=== PATIENT | female | born 1955 | race Caucasian/White ===

== ENCOUNTER → 2024-01-23 13:29 | Outpatient (CLI) | payer MEDICARE, OTHER, SELFPAY ==
--- NOTE | 2024-01-23 13:31 | DI.RAD.S_ITS ---
PROCEDURE: XR ANKLE RT MIN 3V INDICATIONS: Right ankle injury TECHNIQUE: 3 views of the ankle were acquired. COMPARISON: None. FINDINGS: Bones: Distal fibula fracture at the level of the syndesmosis. Minimal step-off. No dislocations. Ankle mortise is normally aligned. No suspicious bony lesions. Soft tissues: No tibiotalar joint effusion. Achilles tendon appears normal. IMPRESSION: Distal fibula fracture at the level of the syndesmosis. Keith Jauregui Dictated by: Tristan Sharma M.D. on 01/23/2024 at 14:26 Approved by: Tristan Sharma M.D. on 01/23/2024 at 14:29
--- NOTE | 2024-01-23 13:31 | DI.RAD.S_ITS ---
PROCEDURE: XR FOOT RT MIN 3V INDICATIONS: Right foot injury TECHNIQUE: 3 views of the foot were acquired. COMPARISON: [facility], CR, XR ANKLE RT MIN 3V, 01/23/2024, 13:32. FINDINGS: Bones: Distal fibula fracture. No dislocations. No suspicious bony lesions. Soft tissues: No tibiotalar joint effusion. Achilles tendon appears normal. IMPRESSION: Distal fibula fracture. Dictated by: Tristan Sharma M.D. on 01/23/2024 at 14:25 Approved by: Tristan Sharma M.D. on 01/23/2024 at 14:26
== END ==
PROVIDERS: PCP Family Medicine; Referring Provider Registered Nurse; Visit Provider Registered Nurse
DX: S82.831A Other fracture of upper and lower end of right fibula, initial encounter for closed fracture (principal); M25.571 Pain in right ankle and joints of right foot
CPT/HCPCS: 73610; 73630

== ENCOUNTER → 2024-02-02 08:20 | Outpatient (CLI) | payer MEDICARE, OTHER, SELFPAY | PROVIDERS: PCP Family Medicine; Referring Provider Internal Medicine Critical Care Medicine; Visit Provider Internal Medicine Critical Care Medicine | DX: R06.02 Shortness of breath (principal) | CPT/HCPCS: 94060; 94726; 94729 ==

== ENCOUNTER → 2024-04-20 12:00 | Outpatient (CLI) | payer MEDICARE, OTHER, SELFPAY ==
--- NOTE | 2024-04-20 12:02 | DI.RAD.S_ITS ---
PROCEDURE: XR FOOT LT MIN 3V INDICATIONS: lump on left foot, Weight baring 3V TECHNIQUE: 3 views of the foot were acquired. COMPARISON: [facility], CR, XR ANKLE 3+ VIEWS RIGHT, 02/27/2024, 11:18. [facility], CR, XR FOOT RT MIN 3V, 01/23/2024, 13:32. FINDINGS: Bones: No acute fractures identified. No dislocations. Screw at the distal fibula. No suspicious bony lesions. Soft tissues: No tibiotalar joint effusion. Achilles tendon appears normal. IMPRESSION: No acute fracture identified. Screw fixation at the distal fibula. Dictated by: Tristan Sharma M.D. on 04/20/2024 at 15:50 Approved by: Tristan Sharma M.D. on 04/20/2024 at 15:52
== END ==
PROVIDERS: PCP Family Medicine; Referring Provider Nurse Practitioner Family; Visit Provider Nurse Practitioner Family
DX: M79.672 Pain in left foot (principal)
CPT/HCPCS: 73630

== ENCOUNTER → 2024-08-31 08:00 | Outpatient (CLI) | payer MEDICARE, OTHER, SELFPAY ==
--- NOTE | 2024-08-31 | DI.MG.S_ITS ---
BILATERAL DIGITAL SCREENING MAMMOGRAM 3D/2D WITH CAD: 08/31/2024 CLINICAL: Routine screening. Family history of breast cancer. Comparison is made to exams dated: 08/12/2022 mammogram, 07/17/2021 mammogram, and 08/22/2023 mammogram - outside facility. The breasts are heterogeneously dense, which may obscure small masses (category c / 51-75% glandular tissue). Current study was also evaluated with a Computer Aided Detection (CAD) system. No significant masses, calcifications, or other findings are seen in either breast. There has been no significant interval change. IMPRESSION: NEGATIVE There is no mammographic evidence of malignancy. A 1 year screening mammogram is recommended. Based on the Tyrer Cuzick model (a risk assessment model) the patient's lifetime risk is 12.0% and her 10 year risk is 6.4%. According to the ACR, ACS, and NCCN guidelines, an annual breast MRI exam along with mammogram is recommended if the patient's lifetime risk is 20% or greater. This exam was interpreted at Station ID: [id number]. NOTE: For mammograms, a report in lay terms will be sent to the patient. Approximately 15% of breast malignancies will not be visualized mammographically. In the management of a palpable breast mass, a negative mammogram must not discourage biopsy of a clinically suspicious lesion. Electronically Signed By: Jackie Portillo M.D., Ph.D. [email or web address]:08/31/2024 23:47:48 letter sent: Normal Exam ACR BI-RADS Category 1: Negative
== END ==
PROVIDERS: PCP Family Medicine; Referring Provider Family Medicine; Visit Provider Family Medicine
DX: Z12.31 Encounter for screening mammogram for malignant neoplasm of breast (principal); Z80.3 Family history of malignant neoplasm of breast; R92.333 Mammographic heterogeneous density, bilateral breasts
CPT/HCPCS: 77063; 77067

== ENCOUNTER → 2024-09-06 08:27 | Outpatient (CLI) | payer MEDICARE, OTHER, SELFPAY | LOC: RESP 08:28 | PROVIDERS: PCP Family Medicine; Referring Provider Internal Medicine Pulmonary Disease; Visit Provider Internal Medicine Pulmonary Disease | DX: R06.02 Shortness of breath (principal); J84.9 Interstitial pulmonary disease, unspecified; R94.2 Abnormal results of pulmonary function studies | CPT/HCPCS: 94060; 94726; 94729 ==

== ENCOUNTER → 2024-11-01 09:41 | Outpatient (CLI) | payer MEDICARE, OTHER, SELFPAY ==
--- NOTE | 2024-11-01 09:48 | DI.RAD.S_ITS ---
PROCEDURE: XR HIP W PEL IF DONE LT 2V INDICATIONS: suspected hip OA, groin and hip pain TECHNIQUE: AP pelvis with lateral view(s) of the left hip(s). COMPARISON: None. FINDINGS: Bones: No fractures or dislocations. Pelvic ring appears intact. No suspicious bony lesions. Soft tissues: The visualized bowel gas pattern is normal. No suspicious soft tissue calcifications. Moderate atheromatous calcification. IMPRESSION: No acute bony abnormality. Dictated by: Srinivasa Chan M.D. on 11/01/2024 at 13:04 Approved by: Srinivasa Chan M.D. on 11/01/2024 at 13:05
== END ==
LOC: RAD 09:44
PROVIDERS: PCP Family Medicine; Referring Provider Family Medicine; Visit Provider Family Medicine
DX: M25.559 Pain in unspecified hip (principal)
CPT/HCPCS: 73502

== ENCOUNTER 2024-11-12 09:59 | Emergency (ER) | payer MEDICARE, OTHER, SELFPAY ==
[2024-11-12] VITALS (8 sets, daily range): BP systolic 135–166; BP diastolic 63–77; PULSE 61–65; RESP 14–18; TEMP 36.8; O2SAT 97–100; BMI 25.2
--- NOTE | 2024-11-12 10:08 | EKG_ITS ---
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
--- NOTE | 2024-11-12 10:09 | DI.RAD.S_ITS ---
PROCEDURE: XR CHEST 1V INDICATIONS: chest pain TECHNIQUE: One view of the chest was acquired. COMPARISON: None. FINDINGS: Surgical changes and devices: Right clavicle fixation. Lungs and pleura: Lungs are clear. No pleural effusions or pneumothorax. Mediastinum: Mediastinal contours appear normal. Heart size is normal. Bones and chest wall: Old right-sided rib fractures. No suspicious bony lesions. Overlying soft tissues appear unremarkable. IMPRESSION: No acute cardiopulmonary abnormality is seen. Dictated by: Shamar Parikh M.D. on 11/12/2024 at 11:02 Approved by: Shamar Parikh M.D. on 11/12/2024 at 11:03
[2024-11-12 10:36] LABS: Add Manual Diff / Slide Review NO; Basophils Absolute Auto 0 /uL (0-100); Basophils Percent Auto 0.9 % (0-2); Eosinophils Absolute Auto 300 /uL (0-450); Eosinophils Percent Auto 6.7 % (2-4); Hematocrit 41.6 % (36-46); Hemoglobin 14.4 g/dL (12.0-16.0); Lymphocytes Absolute Auto 1500 /uL (1100-4500); Lymphocytes Percent Auto 31.9 % (25-40); Mean Corpuscular HGB Conc 34.5 % (30-36); Mean Corpuscular Volume 86.8 fL (80-100); Monocytes Absolute Auto 500 /uL (0-900); Monocytes Percent Auto 9.9 % (3-14); Neutrophils Absolute Auto 2400 /uL (1500-7000); Neutrophils Percent Auto 50.6 % (50-75); Platelet Count 253 X10^3/uL (150-400); Red Blood Cell Count 4.79 X10^6/uL (4.0-5.2); Red Cell Distribution Width 14.2 % (11.6-14.8); White Blood Cell Count 4.6 X10^3/uL (4.5-11.0)
[2024-11-12 10:41] LABS: Prothrombin Time 10.9 SECONDS (9.4-12.5)
[2024-11-12 10:44] LABS: PTT Partial Thromboplastin Tim 31 SECONDS (25.1-36.5)
[2024-11-12 10:45] LABS: Alanine Aminotransferase 28 IU/L (<35); Albumin 4.6 g/dL (3.5-5.0); Albumin Globulin Ratio 1.6 (1.0-2.8); Alkaline Phosphatase 101 U/L (38-126); Aspartate Aminotransferase 34 IU/L (14-36); BUN Creatinine Ratio 19.2 (6-22); Bilirubin Total 0.4 mg/dL (0.2-1.3); Blood Urea Nitrogen 19 mg/dL (7-17); Calcium 9.2 mg/dL (8.4-10.2); Carbon Dioxide 31 mmol/L (22-32); Chloride 103 mmol/L (98-107); Creatine Kinase 71 U/L (30-135); Estimated Glomerular Filt Rate > 60 mL/min (>60); Globulin 2.8 g/dL (1.7-4.1); Glucose 82 mg/dL (80-110); HEMOLYSIS < 15 (0-50); Lipase 114 U/L (23-300); Magnesium 1.9 mg/dL (1.6-2.3); Potassium 4.4 mmol/L (3.4-5.1); Sodium 138 mmol/L (137-145); Total Protein 7.4 g/dL (6.3-8.2)
[2024-11-12 10:57] LABS: NT-proBNP (BNP-Adult 18+) < 20 pg/mL (<125); Troponin I < 0.012 ng/mL (0.01-0.034)
[2024-11-12] MEDS: ASPIRIN 81 MG CHEW TAB 243 MG PO (11:04)
--- NOTE | 2024-11-12 12:12 | ED.CHESTPAIN ---
HPI - Chest Pain General Chief Complaint: Chest Pain Stated Complaint: chest pain Time Seen by Provider: 11/12/24 11:57 Source: patient Mode of arrival: Ambulatory Limitations: no limitations History of Present Illness HPI narrative: Patient is a 69-year-old female history of sarcoid she has no known coronary artery disease but does have known calcifications in her coronaries hyperlipidemia on a statin presents today with chest pain. She reports that up about an hour and half after eating she was sitting at her computer when she felt some pain in the center of her chest. It is nonradiating lasted for about 45 minutes and has slowly gone away. She denies any sort of shortness of breath. She is extremely active exercises and rides her bike. She has not noticed any decrease in activity she denies any sort of shortness of breath no lower extremity swelling no abdominal pain nausea or vomiting no other symptoms. Related Data Home Medications Medication Instructions Recorded Confirmed amlodipine 5 mg tablet 5 mg PO DAILY 01/23/24 11/01/24 losartan 50 mg tablet 50 mg PO DAILY 01/23/24 11/01/24 omeprazole 20 mg capsule,delayed 20 mg PO DAILY 01/23/24 11/01/24 release omega 3-gfg-ooe-fish oil 1,000 mg 2 cap PO DAILY 01/30/24 11/01/24 (120 mg-180 mg) capsule (Fish Oil) difluprednate 0.05 % eye drops drp EYE-BOTH 04/20/24 11/01/24 estradiol 10 mcg vaginal tablet 10 mcg vaginal 2XW 04/20/24 11/01/24 hydroxyzine HCl 25 mg tablet 25 mg PO BID 04/20/24 11/01/24 venlafaxine 37.5 mg tablet 37.5 mg PO DAILY 11/01/24 11/01/24 Previous Rx's Medication Instructions Recorded methotrexate sodium 10 mg tablet 10 mg PO QWEEK #12 tabs 09/19/24 cyclobenzaprine 5 mg tablet 5 mg PO 3XD PRN for muscle spasm 11/12/24 #30 tabs Allergies Allergy/AdvReac Type Severity Reaction Status Date / Time levofloxacin [From Levaquin] Allergy Severe swelling Verified 11/01/24 09:05 Penicillins Allergy Severe swelling Verified 11/01/24 09:05 Sulfa (Sulfonamide Allergy Intermediate swelling Verified 11/01/24 09:05 Antibiotics) of feet Patient History Medical History Hip pain Sleep apnea (~2009) Depression Anxiety Fractures (~2010) Chronic back pain (~2022) Dry eyes Tinnitus Recurrent sinusitis Glaucoma (~2019) Cataracts, bilateral History of urinary incontinence (~2021) GERD (gastroesophageal reflux disease) Colon polyps Retinal defect with detachment (~2019) Osteopenia Coronary artery calcification Hyperlipidemia Sarcoidosis (~2022) Closed fibular fracture Shoulder pain, right Surgical History Anesthesia History of eyelid surgery History of rhinoplasty History of ankle surgery History of surgery on wrist History of thumb surgery History of shoulder surgery History of sinus surgery History of appendectomy History of tonsillectomy Family History Father Congestive heart failure Mother Hypertension Hyperlipidemia Mental health problem Stroke Grandmother Breast cancer Social History Smoking Status: Never smoker Smoking Status: Never smoker Alcohol type: wine Exam Initial Vital Signs Initial Vital Signs: Vital Signs Temperature 98.3 F 11/12/24 10:15 Pulse Rate 65 11/12/24 10:15 Respiratory Rate 16 11/12/24 10:15 Blood Pressure 166/77 H 11/12/24 10:15 Pulse Oximetry 98 11/12/24 10:15 Oxygen Delivery Method Room Air 11/12/24 10:15 GENERAL: Alert pleasant well-appearing 69-year-old female and in no acute distress. HEENT: Head atraumatic,EOMI, pupils reactive, face symmetric, moist mucous membranes CARDIOVASCULAR: Regular rate and rhythm without murmurs, rubs or gallops. RESPIRATORY: Breath sounds equal bilaterally, no wheezes rales or rhonchi. ABDOMEN: Soft, nontender. Normoactive bowel sounds all 4 quadrants. No guarding or rebound. EXTREMITIES: Normal range of motion, no clubbing or edema. Neurovascularly intact NEUROLOGICAL: Alert and oriented x4.Normal gait and speech. Cranial nerves II through XII grossly intact. SKIN: Warm, dry, no laceration, no petechiae, no rashes or lesions. Scores HEART Score Heart Score history: Slightly Suspicious Heart Score EKG: Normal Heart Score Age: > or = 65 years old Heart Score risk factors: 1-2 risk factors Heart Score troponin: < or = to normal limit Heart Score Total: 3 Course Orders Ordered: ED Orders 11/12/24 10:09 XR chest 1V Stat EKG-12 Lead Stat 11/12/24 10:22 Complete Blood Count AUTO DIFF Stat Comprehensive Metabolic Panel Stat Lipase Stat Magnesium Stat NT-proBNP (BNP-Adult 18+) Stat PTT Partial Thromboplastin Terrance Stat Prothrombin Time INR Stat Troponin & CK Cardiac Panel Stat 11/12/24 12:28 Trop I [Troponin I] Stat 11/12/24 12:29 EKG-12 Lead Stat Discontinued Medications Aspirin (Aspirin Ec 325 Mg Tablet) 243 mg PO NOW ONE Stop: 11/12/24 10:56 Last Admin: 11/12/24 11:34 Dose: Not Given Documented By: KOBI Aspirin (Aspirin 81 Mg Chew Tab) 243 mg PO NOW ONE Stop: 11/12/24 11:03 Last Admin: 11/12/24 11:04 Dose: 243 mg Documented By: AFSHAN Vital Signs Vital signs: Vital Signs - 8 hr 11/12/24 10:15 11/12/24 10:36 11/12/24 10:37 Temperature 98.3 F Pulse Rate 65 63 Respiratory Rate 16 Blood Pressure 166/77 H 159/72 H Pulse Oximetry 98 97 Oxygen Delivery Method Room Air 11/12/24 10:37 11/12/24 11:00 11/12/24 11:00 Temperature Pulse Rate 61 63 Respiratory Rate 15 15 Blood Pressure 143/68 H Pulse Oximetry 98 97 Oxygen Delivery Method Room Air 11/12/24 11:30 11/12/24 11:30 11/12/24 12:00 Temperature Pulse Rate 64 Respiratory Rate 14 Blood Pressure 135/63 142/68 H Pulse Oximetry 98 Oxygen Delivery Method Room Air 11/12/24 12:00 11/12/24 12:30 11/12/24 12:30 Temperature Pulse Rate 63 62 Respiratory Rate 17 18 Blood Pressure 145/67 H Pulse Oximetry 100 98 Oxygen Delivery Method Room Air 11/12/24 13:00 11/12/24 13:00 Temperature Pulse Rate 63 Respiratory Rate 17 Blood Pressure 141/70 H Pulse Oximetry 98 Oxygen Delivery Method MDM - Chest Pain Lab Data 11/12/24 10:22 11/12/24 10:22 Labs: Lab Results 11/12/24 11/12/24 Range/Units 10:22 12:28 WBC 4.6 (4.5-11.0) X10^3/uL RBC 4.79 (4.0-5.2) X10^6/uL Hgb 14.4 (12.0-16.0) g/dL Hct 41.6 (36-46) % MCV 86.8 (80-100) fL MCH 30.0 (26-34) PG MCHC 34.5 (30-36) % RDW 14.2 (11.6-14.8) % Plt Count 253 (150-400) X10^3/uL Neut % (Auto) 50.6 (50-75) % Lymph % (Auto) 31.9 (25-40) % [place] % (Auto) 9.9 (3-14) % Eos % (Auto) 6.7 H (2-4) % Baso % (Auto) 0.9 (0-2) % Neut # (Auto) 2400 (8071-6593) /uL Lymph # (Auto) 1500 (4753-7661) /uL [place] # (Auto) 500 (0-900) /uL Eos # (Auto) 300 (0-450) /uL Baso # (Auto) 0 (0-100) /uL PT 10.9 (9.4-12.5) SECONDS INR 1.0 (0.9-1.3) APTT 31 (25.1-36.5) SECONDS Sodium 138 (137-145) mmol/L Potassium 4.4 (3.4-5.1) mmol/L Chloride 103 (98-107) mmol/L Carbon Dioxide 31 (22-32) mmol/L BUN 19 H (7-17) mg/dL Creatinine 0.99 (0.52-1.04) mg/dL Estimated GFR > 60 (>60) mL/min BUN/Creatinine Ratio 19.2 (6-22) Glucose 82 (80-110) mg/dL Calcium 9.2 (8.4-10.2) mg/dL Magnesium 1.9 (1.6-2.3) mg/dL Total Bilirubin 0.4 (0.2-1.3) mg/dL AST 34 (14-36) IU/L ALT 28 (<35) IU/L Alkaline Phosphatase 101 (38-126) U/L Total Creatine Kinase 71 (30-135) U/L Troponin I < 0.012 < 0.012 (0.01-0.034) ng/mL NT-Pro-B Natriuret Pep < 20 (<125) pg/mL Total Protein 7.4 (6.3-8.2) g/dL Albumin 4.6 (3.5-5.0) g/dL Globulin 2.8 (1.7-4.1) g/dL Albumin/Globulin Ratio 1.6 (1.0-2.8) Lipase 114 (23-300) U/L Imaging Data Chest x-ray: Radiologist's Impression: PROCEDURE: XR CHEST 1V INDICATIONS: chest pain TECHNIQUE: One view of the chest was acquired. COMPARISON: None. FINDINGS: Surgical changes and devices: Right clavicle fixation. Lungs and pleura: Lungs are clear. No pleural effusions or pneumothorax. Mediastinum: Mediastinal contours appear normal. Heart size is normal. Bones and chest wall: Old right-sided rib fractures. No suspicious bony lesions. Overlying soft tissues appear unremarkable. IMPRESSION: No acute cardiopulmonary abnormality is seen. Dictated by: Shamar Parikh M.D. on 11/12/2024 at 11:02 ECG Data Prior ECG tracings: available for review Interpretation: Normal sinus rhythm rate 64 HI interval 138 QRS 84 QTC 441 Repeat EKGs shows sinus rhythm without ischemia in no changes MDM Narrative Medical decision making narrative: MDM CC: Chest pain Complicating co-morbidities: Sarcoidosis Medical records reviewed: Previous PCP visit having SI pain Differential considered: Acute coronary syndrome, pneumonia GERD pneumothorax NSTEMI STEMI Exam documented above, pertinent findings include: Alert well-appearing 61-year-old female pain not reproducible Lab Test results independently reviewed as above. Pertinent findings: Troponin negative times 2 CBC within normal limits CMP within normal limits Independently reviewed EKG as above Sinus rhythm no ischemia no changes Imaging studies independently reviewed: No acute cardiopulmonary process Consultations: None Treatments: None Re-evaluations: Patient remains chest pain free Discussion: Patient is 61-year-old female presents today with chest pain. Lasted for about 45 minutes. She was very active female it does not stop her she has no significant shortness of breath with exertion. This started at rest but self resolves. She has not noticed any ongoing shortness of breath with exertion. Long discussion with her she likely needs outpatient testing strongly encouraged her to see her primary care and return to the ED if symptoms worsen. She understands that not full evaluation was done. Has a low heart score. She has good follow-up with primary Discharge Plan Departure Patient Disposition: Home Clinical Impression: Atypical chest pain Instructions: DI for Atypical Chest Pain Activity Restrictions/Additional Instructions: *You have been diagnosed with atypical chest pain *What to do: At this time I do recommend he follow up with your primary care provider you may need further testing such as a cardiac stress test and/or echocardiogram *Continue to take medications as directed *Follow up with your primary care provider in 2-3 days or call [phone] *Return to ER if you should have increasing chest pain shortness of breath or any new, worsening or concerning symptoms Prescriptions: No Action omega 5-qwd-ynp-fish oil [Fish Oil] 1,000 mg (120 mg-180 mg) capsule 2 cap PO DAILY omeprazole 20 mg capsule,delayed release(DR/EC) 20 mg PO DAILY amlodipine 5 mg tablet 5 mg PO DAILY losartan 50 mg tablet 50 mg PO DAILY estradiol 10 mcg tablet 10 mcg vaginal 2XW difluprednate 0.05 % drops EYE-BOTH hydroxyzine HCl 25 mg tablet 25 mg PO BID venlafaxine 37.5 mg tablet 37.5 mg PO DAILY methotrexate sodium 10 mg tablet 10 mg PO QWEEK Qty: 12 0RF cyclobenzaprine 5 mg tablet 5 mg PO 3XD PRN (Reason: for muscle spasm) Qty: 30 0RF Referrals: Susana Camacho MD [Primary Care Provider] - Stand Alone Forms: Patient Portal/API/Survey
--- NOTE | 2024-11-12 12:36 | EKG_ITS ---
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
[2024-11-12 13:03] LABS: Troponin I < 0.012 ng/mL (0.01-0.034)
== END 2024-11-12 13:20 | disposition home or self-care (01) ==
PROVIDERS: Emergency Provider Emergency Medicine; PCP Family Medicine
DX: R07.89 Other chest pain (principal); D86.9 Sarcoidosis, unspecified; E78.5 Hyperlipidemia, unspecified
CPT/HCPCS: 36415; 71045; 80053; 82550; 83690; 83735; 83880; 84484; 85025; 85610; 85730; 93005; 99284

== ENCOUNTER → 2024-12-27 08:50 | Outpatient (CLI) | payer MEDICARE, OTHER, SELFPAY ==
--- NOTE | 2024-12-27 08:51 | DI.RAD.S_ITS ---
PROCEDURE: XR CHEST 2V INDICATIONS: cough x1 month TECHNIQUE: 2 views of the chest were acquired. COMPARISON: [facility], CR, XR CHEST 1V, 11/12/2024, 10:08. FINDINGS: Surgical changes and devices: Hardware noted status post reduction of right clavicle fracture. Lungs and pleura: Lungs are clear. No pleural effusions or pneumothorax. Mediastinum: Mediastinal contours are normal. Heart size is normal. Bones and chest wall: No suspicious bony abnormalities. Soft tissues appear unremarkable. IMPRESSION: No evidence of acute cardiopulmonary process. Dictated by: Jas Torres M.D. on 12/27/2024 at 15:02 Approved by: Jas Torres M.D. on 12/27/2024 at 15:03
== END ==
PROVIDERS: PCP Family Medicine; Referring Provider Family Medicine; Visit Provider Family Medicine
DX: R05.9 Cough, unspecified (principal)
CPT/HCPCS: 71046

== ENCOUNTER → 2025-01-24 14:43 | Outpatient (CLI) | payer MEDICARE, OTHER, SELFPAY ==
--- NOTE | 2025-01-24 14:45 | DI.RAD.S_ITS ---
PROCEDURE: XR LUMBAR SPINE MIN 4V INDICATIONS: BACK PAIN TECHNIQUE: 5 views of the lumbar spine were acquired, including bilateral oblique views. COMPARISON: None. FINDINGS: Bones: 5 nonrib-bearing vertebrae are present. Convex right scoliosis, centered at L3. No vertebral body compression fractures. No suspicious bony lesions. Moderate to severe disc height loss at all levels. Facet arthrosis of L3 through S1. Soft tissues: Overlying bowel gas pattern is normal. No suspicious soft tissue calcifications. Oblique images: No pars defects. IMPRESSION: Moderate to severe, multilevel degenerative disc disease and lower lumbar facet arthrosis. Dictated by: Callum Peña M.D. on 01/24/2025 at 15:34 Approved by: Callum Peña M.D. on 01/24/2025 at 15:37
== END ==
PROVIDERS: PCP Family Medicine; Referring Provider Physical Medicine & Rehabilitation; Visit Provider Physical Medicine & Rehabilitation
DX: M54.9 Dorsalgia, unspecified (principal); G89.29 Other chronic pain; M51.369 Other intervertebral disc degeneration, lumbar region without mention of lumbar back pain or lower extremity pain; M47.816 Spondylosis without myelopathy or radiculopathy, lumbar region
CPT/HCPCS: 72110

== ENCOUNTER → 2025-01-29 07:12 | Outpatient (CLI) | payer MEDICARE, OTHER, SELFPAY ==
--- NOTE | 2025-01-29 07:13 | DI.MRI.S_ITS ---
PROCEDURE: MR LUMBAR SPINE WO CON INDICATIONS: Left Lumbar Radiculopathy TECHNIQUE: Noncontrast sagittal T1 spin echo and T2 fast echo, sagittal STIR, and T2 fast spin echo through the lumbar spine. In cases with scoliosis, additional coronal T2 fast spin echo may be performed. COMPARISON: [facility], CR, XR LUMBAR SPINE MIN 4V, 01/24/2025, 14:48. FINDINGS: Image quality: Excellent. Alignment and Curvature: Moderate dextro curvature centered at L3. Bone Marrow: Marrow is of normal overall signal. No acute vertebral body compression fractures. Spinal Cord: Conus medullaris terminates at the L1 level. Visualized cord demonstrates normal signal and size. Paraspinous Soft Tissues: No paravertebral masses. T12-L1: Normal appearance. L1-L2: Normal appearance. L2-L3: Moderate to severe canal stenosis, underestimated by choice of axial scan plane. This is secondary to a moderate broad-based posterior disc protrusion, facet and ligament hypertrophy, and epidural lipomatosis. This is well appreciated on sagittal T1 image 9 of series 4, T2 sagittal image 9 of series 2, and is also seen on T2 axial image 13 of series 6. Moderate left foraminal narrowing with mild flattening deformity on the exiting left L2 nerve root. L3-L4: Mild disc height loss. Disc bulge. Facet hypertrophy. No significant canal stenosis. Moderate to severe left foraminal narrowing with mild left foraminal L3 nerve root impingement. L4-L5: Disc bulge. Facet and ligament hypertrophy. No significant canal stenosis. Mild right foraminal stenosis. L5-S1: Disc bulge with very small focal left paracentral disc protrusion which abuts the left S1 nerve root in the left lateral recess. Reference axial T2 image 27 of series 6. IMPRESSION: 1. There is underlying moderate dextrocurvature centered at L3, as well as multilevel lower lumbar facet arthropathy. Additionally, epidural lipomatosis contributes to canal stenosis at L2-L3. 2. Canal stenosis is moderate to severe at L2-L3. 3. Multilevel foraminal narrowing as described above, including moderate to severe left foraminal narrowing at L3-L4. 4. A small focal left paracentral disc protrusion abuts the left S1 nerve root in the left lateral recess at L5-S1. Dictated by: Nick Jimenez M.D. on 01/29/2025 at 14:35 Approved by: Nick Jimenez M.D. on 01/29/2025 at 14:43
== END ==
PROVIDERS: PCP Family Medicine; Referring Provider Physical Medicine & Rehabilitation; Visit Provider Physical Medicine & Rehabilitation
DX: M54.16 Radiculopathy, lumbar region (principal); M48.061 Spinal stenosis, lumbar region without neurogenic claudication; M43.8X6 Other specified deforming dorsopathies, lumbar region; M47.816 Spondylosis without myelopathy or radiculopathy, lumbar region; E88.2 Lipomatosis, not elsewhere classified; M51.27 Other intervertebral disc displacement, lumbosacral region
CPT/HCPCS: 72148

== ENCOUNTER → 2025-01-29 16:21 | Outpatient (CLI) | payer MEDICARE, OTHER, SELFPAY | PROVIDERS: PCP Family Medicine; Referring Provider Internal Medicine Critical Care Medicine; Visit Provider Internal Medicine Critical Care Medicine | DX: R06.09 Other forms of dyspnea (principal); M54.16 Radiculopathy, lumbar region; M48.061 Spinal stenosis, lumbar region without neurogenic claudication; E88.2 Lipomatosis, not elsewhere classified; M51.27 Other intervertebral disc displacement, lumbosacral region; M43.8X6 Other specified deforming dorsopathies, lumbar region; R94.2 Abnormal results of pulmonary function studies | CPT/HCPCS: 72148; 94060; 94726; 94729 ==

== ENCOUNTER 2025-02-19 13:00 | Outpatient (CLI) | payer MEDICARE, OTHER, SELFPAY ==
[2025-02-19] VITALS (10 sets, daily range): BP systolic 142–159; BP diastolic 67–77; PULSE 58–62; RESP 14–105; TEMP 36.3; O2SAT 96–100
[2025-02-19] MEDS: MIDAZOLAM 2 MG/2 ML VIAL IV (14:12)
[2025-02-19] MEDS: iopamidoL 15 ML VIAL 3 ML INJ (14:16)
[2025-02-19] MEDS: BUPIVACAINE 0.25% (PF) VIAL 2 ML INJ (14:16)
[2025-02-19] MEDS: DEXAMETHASONE 10 MG/ML VIAL 20 MG INJ (14:16)
[2025-02-19] MEDS: BETAMETHASONE 30 MG/5 ML MDV 12 MG INJ (14:16)
[2025-02-19] MEDS: BETAMETHASONE 30 MG/5 ML MDV 6 MG INJ (14:17)
--- NOTE | 2025-02-19 14:37 | P.PCN_ITS ---
Date/Time/Diagnoses Date of procedure: 02/19/25 Time of procedure: 14:38 Pre-procedure diagnosis: 1. FORAMINAL STENOSIS WITH LE SYMPTOMS Post-procedure diagnosis: same Procedure Notes Procedure: 1. FLUOROSCOPICALLY GUIDED CONTRAST CONTROLLED TRANSFORAMINAL EPIDURAL STEROID INJECTION - LEFT L2/3 TFESI Indications: [facility] is referred by Dr. Camacho for treatment of Foraminal Stenosis with left LE Symptoms Physician: Andrey Beebe Total Fluoroscopy time (seconds): 21 Total sedation minutes: 22 Complications: none Procedure in detail & Post-procedure care: FINDINGS Foraminal Nerve Root Compression secondary to disc disease and facet hypertrophy DESCRIPTION OF PROCEDURE Following review of allergy and review of potential side effects and complications, including, but not necessarily limited to, infection, allergic reaction, local tissue breakdown, stroke, temporary or permanent nerve injury, paralysis, and possible , the patient indicated that the patient understood and agreed to proceed. An informed consent document was signed by the patient, witnessed by a nurse, and placed in the patient's chart. Additionally, other treatment options including medications, modalities, and physical therapy were reviewed with the patient. After review of previous anaesthesic history and IV conscious sedation the patient was deemed safe to proceed with today?s procedure with IV conscious sedation as ASA class II designation. Safety time-out was performed to confirm patient ID, procedure to be performed and site of procedure. IV sedation was accomplished with a combination of 2mg of Versed was administered by the RN after DO order, titrated to patient comfort during the course of the procedure while the patient remained responsive to all verbal commands In the prone position following sterile prep and drape of the lumbar region, the left L2/3 posterior neuroforamen was identified fluoroscopically. The skin was anesthetized via a 25-gauge 1.5-inch needle with 1% lidocaine solution. At this point, a 25-gauge 3.5-inch spinal needle was atraumatically introduced and advanced under fluoroscopic guidance through the posterior left L2/3 neuroforamen to approximately the anterior aspect of the canal. Depth was confirmed on lateral view. Following negative aspiration, injection of approximately 1.5 cc of Isovue 200 under live fluoroscopy in the AP view confirmed excellent flow along the nerve root, into the epidural space without vascular or intrathecal uptake observed Radiological data, including multiple fluoroscopic views of the lumbosacral sp ine, reveal a spinal needle at the left L2/3 posterior neuroforamen. Subsequent views show flow of contrast material flowing superiorly and inferiorly along the nerve root confirming epidural flow. Subsequently, a test dose of 1.5cc of 1% lidocaine solution was administered and patient was observed for two minutes for signs or symptoms of complications, including abdominal pain, shortness of breath, bilateral upper or lower extremity weakness, nausea and vomiting, prior to steroid injection. At this point, a total of 3cc or 10mg of dexamethasone and 12mg betamethasone was injected without incident. The patient tolerated the procedure well without signs or symptoms of complications prior to transfer to the recovery area continued monitoring without incident. The patient was then transferred to the recovery area where they were observed for an appropriate time after the injection. The patient reported a VAS score of 8 prior to the procedure and a post-procedure VAS of 1. POST OP INSTRUCTIONS The patient was provided a Pain Log to continue to record their response to the target-specific procedure prior to follow-up visit with their referring phys ician. Additionally, specific post-injection care instructions and a contact number to our office were provided if concerns arise regarding possible complications associated with the procedure are suspected.
--- NOTE | 2025-02-19 14:39 | P.PCN_ITS ---
Date/Time/Diagnoses Date of procedure: 02/19/25 Time of procedure: 14:40 Pre-procedure diagnosis: 1. FORAMINAL STENOSIS WITH LE SYMPTOMS Post-procedure diagnosis: same Procedure Notes Procedure: 1. FLUOROSCOPICALLY GUIDED CONTRAST CONTROLLED TRANSFORAMINAL EPIDURAL STEROID INJECTION - Left L5/S1 Indications: [facility] is referred by Dr. Camacho for treatment of Foraminal Stenosis with Left LE Symptoms Physician: Andrey Beebe Total Fluoroscopy time (seconds): 21 Total sedation minutes: 22 Complications: none Procedure in detail & Post-procedure care: FINDINGS Foraminal Nerve Root Compression secondary to disc disease and facet hypertrophy DESCRIPTION OF PROCEDURE Following review of allergy and review of potential side effects and complications, including, but not necessarily limited to, infection, allergic reaction, local tissue breakdown, stroke, temporary or permanent nerve injury, paralysis, and possible , the patient indicated that the patient understood and agreed to proceed. An informed consent document was signed by the patient, witnessed by a nurse, and placed in the patient's chart. Additionally, other treatment options including medications, modalities, and physical therapy were reviewed with the patient. After review of previous anaesthesic history and IV conscious sedation the patient was deemed safe to proceed with today?s procedure with IV conscious sedation as ASA class II designation. Safety time-out was performed to confirm patient ID, procedure to be performed and site of procedure. IV sedation was accomplished with a combination of 2mg of Versed was administered by the RN after DO order, titrated to patient comfort during the course of the procedure while the patient remained responsive to all verbal commands In the prone position following sterile prep and drape of the lumbar region, the Left L5/S1 posterior neuroforamen was identified fluoroscopically. The skin was anesthetized via a 25-gauge 1.5-inch needle with 1% lidocaine solution. At this point, a 25-gauge 3.5-inch spinal needle was atraumatically introduced and advanced under fluoroscopic guidance through the posterior Left L5/S1 neuroforamen to approximately the anterior aspect of the canal. Depth was confirmed on lateral view. Following negative aspiration, injection of approximately 1.5 cc of Isovue 200 under live fluoroscopy in the AP view confirmed excellent flow along the nerve root, into the epidural space without vascular or intrathecal uptake observed Radiological data, including multiple fluoroscopic views of the lumbosacral sp ine, reveal a spinal needle at the Left L5/S1 posterior neuroforamen. Subsequent views show flow of contrast material flowing superiorly and inferiorly along the nerve root confirming epidural flow. Subsequently, a test dose of 1.5 cc of 1% lidocaine solution was administered and patient was observed for two minutes for signs or symptoms of complications, including abdominal pain, shortness of breath, bilateral upper or lower extremity weakness, nausea and vomiting, prior to steroid injection. At this point, a total of 2cc or 10mg of dexamethasone and 6mg of betamethasone was injected without incident. The procedure tolerated the procedure well without signs or symptoms of complications prior to transfer to the recovery area continued monitoring without incident. The patient was then transferred to the recovery area where they were observed for an appropriate time after the injection. The patient reported a VAS score of 8 prior to the procedure and a post-procedure VAS of 1. POST OP INSTRUCTIONS The patient was provided a Pain Log to continue to record their response to the target-specific procedure prior to follow-up visit with their referring physician. Additionally, specific post-injection care instructions and a contact number to our office were provided if concerns arise regarding possible complications associated with the procedure are suspected.
== END 2025-02-19 14:50 | disposition home or self-care (01) ==
PROVIDERS: PCP Family Medicine; Referring Provider Physical Medicine & Rehabilitation; Visit Provider Physical Medicine & Rehabilitation
DX: M48.061 Spinal stenosis, lumbar region without neurogenic claudication (principal); M48.07 Spinal stenosis, lumbosacral region; M51.16 Intervertebral disc disorders with radiculopathy, lumbar region; M51.17 Intervertebral disc disorders with radiculopathy, lumbosacral region; M47.26 Other spondylosis with radiculopathy, lumbar region; M47.27 Other spondylosis with radiculopathy, lumbosacral region
CPT/HCPCS: 64483; 64484; 99152; J0702; J1100; J2250; J3490

== ENCOUNTER → 2025-04-06 13:45 | Outpatient (CLI) | payer MEDICARE, OTHER, SELFPAY ==
--- NOTE | 2025-04-06 13:48 | DI.CT.S_ITS ---
PROCEDURE: CT SINUS SCREEN WO CON INDICATIONS: facial pain TECHNIQUE: Noncontrast 3.0 mm axial images acquired from the frontal sinuses to the mid-sella, with coronal and sagittal reformats. For radiation dose reduction, the following was used: automated exposure control, adjustment of mA and/or kV according to patient size. COMPARISON: None. FINDINGS: Image quality: Diagnostic Maxillary Sinuses: Postsurgical changes, with no bony remodeling identified or significant opacification Ethmoid Air Cells: Postsurgical changes with no significant fluid or mucosal thickening Sphenoid Sinuses: No significant opacification Frontal Sinuses: Well aerated, no fluid level Ostiomeatal Complexes: Postsurgical changes. Overall patent. Miscellaneous: Postsurgical changes of the middle turbinates The mastoids are clear. The middle ears appear clear. Age-indeterminate deformity of the nasal bone. Mild rightward bony nasal septum deviation. Lens replacements. Partially visualized facial soft tissue structures are unremarkable. Partially visualized upper cervical degenerative changes. IMPRESSION: Postsurgical changes. No acute sinus disease identified. 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 Mild rightward bony nasal septum deviation Dictated by: Francis Del Real M.D. on 04/06/2025 at 19:45 Approved by: Francis Del Real M.D. on 04/06/2025 at 19:47
== END ==
PROVIDERS: PCP Family Medicine; Referring Provider Otolaryngology; Visit Provider Otolaryngology
DX: R51.9 Headache, unspecified (principal); J34.89 Other specified disorders of nose and nasal sinuses; J32.4 Chronic pansinusitis; J34.2 Deviated nasal septum; Z98.890 Other specified postprocedural states; M95.0 Acquired deformity of nose
CPT/HCPCS: 70486

== ENCOUNTER → 2025-05-07 16:04 | Outpatient (CLI) | payer MEDICARE, OTHER, SELFPAY ==
[2025-05-07 16:53] LABS: Influenza A - CEPHEID Flu A NEGATIVE (NEGATIVE); Influenza B - CEPHEID Flu B NEGATIVE (NEGATIVE); Respiratory Syncytial Virus Negative (Negative)
[2025-05-07 17:37] LABS: COVID-19 CEPHEID 4-PLEX PCR Negative (Negative)
== END ==
PROVIDERS: PCP Family Medicine; Visit Provider Nurse Practitioner Family
DX: R50.9 Fever, unspecified (principal)
CPT/HCPCS: 0241U

== ENCOUNTER 2025-05-07 16:13 | Emergency (ER) | payer MEDICARE, OTHER, SELFPAY ==
[2025-05-07] VITALS (12 sets, daily range): BP systolic 93–112; BP diastolic 53–59; PULSE 55–69; RESP 15–18; TEMP 36.8–38; O2SAT 92–97; BMI 25.7
--- NOTE | 2025-05-07 17:36 | ED.URI ---
HPI - URI/Sore Throat <Da De Leon PA-C - Last Filed: 05/07/25 19:12> General Chief Complaint: Upper Respiratory Symptoms Stated Complaint: Fever, Shakiness Time Seen by Provider: 05/07/25 16:52 Source: patient Mode of arrival: Wheelchair History of Present Illness HPI Narrative: 69-year-old female presents to the ED with a fever, shakes, nausea, diarrhea for the last few days. Patient was seen earlier today in the walk-in clinic and sent to the ED for further evaluation with concerns for dehydration. In the ED, patient describes that she got shaky once last night but that has subsided since then. Patient endorses fever, shakes, nausea, anorexia, diarrhea/loose stools. No vomiting, rhinorrhea, cough, sore throat, abdominal pain, dysuria, lightheadedness, dizziness, syncope. Related Data Home Medications ?Medication ?Instructions ?Recorded ?Confirmed amlodipine 5 mg tablet 5 mg PO DAILY 01/23/24 03/06/25 losartan 50 mg tablet 50 mg PO DAILY 01/23/24 03/06/25 omeprazole 20 mg capsule,delayed 20 mg PO DAILY 01/23/24 03/06/25 release omega 5-xqx-lzk-fish oil 1,000 mg 2 cap PO DAILY 01/30/24 03/06/25 (120 mg-180 mg) capsule (Fish Oil) difluprednate 0.05 % eye drops drp EYE-BOTH 04/20/24 03/06/25 estradiol 10 mcg vaginal tablet 10 mcg vaginal 2XW 04/20/24 03/06/25 hydroxyzine HCl 25 mg tablet 25 mg PO BID 04/20/24 03/06/25 atorvastatin 10 mg tablet 10 mg PO DAILY 01/24/25 03/06/25 icosapent ethyl 0.5 gram capsule 1 g PO BID 02/06/25 03/06/25 Previous Rx's ?Medication ?Instructions ?Recorded gabapentin 300 mg capsule 300 mg PO TID #90 caps 01/28/25 methotrexate sodium 2.5 mg tablet 10 mg (4 x 2.5 mg) PO QWEEK #84 02/07/25 tabs doxycycline hyclate 100 mg capsule 100 mg PO BID 1 week #14 caps 05/08/25 Allergies Allergy/AdvReac Type Severity Reaction Status Date / Time levofloxacin (From Levaquin) Allergy Severe swelling Verified 05/08/25 12:06 Penicillins Allergy Severe swelling Verified 05/08/25 12:06 Sulfa (Sulfonamide Allergy Intermediate swelling Verified 05/08/25 12:06 Antibiotics) of feet Review of Systems <Da De Leon PA-C - Last Filed: 05/07/25 19:12> Constitutional Constitutional: Reports anorexia, Reports chills, Denies fatigue, Reports fever(s), Denies frequent falls, Denies lethargy and Denies weakness Eyes Eyes: Denies change in vision, Denies eye discharge, Denies irritation and Denies loss of vision ENT Ears, Nose, Mouth, and Throat: Denies change in voice, Denies dizziness, Denies neck pain, Denies sore throat and Denies throat swelling Cardiovascular Cardiovascular: Denies chest pain, Denies irregular heart rhythm, Denies lightheadedness, Denies palpitations, Denies dyspnea, Denies dyspnea on exertion and Denies orthopnea Respiratory Respiratory: Denies cough, Denies dyspnea, Denies dyspnea on exertion and Denies wheezing Gastrointestinal Gastrointestinal: Denies abdominal pain, Denies change in bowel habits, Reports diarrhea, Reports nausea and Denies vomiting Genitourinary Genitourinary: Denies dysuria Musculoskeletal Musculoskeletal: Denies neck pain and Denies numbness Integumentary/Breasts Skin/Breast: Denies pruritus, Denies erythema, Denies rash and Denies wounds Neurologic Neurologic: Denies behavioral changes, Denies confusion, Denies dizziness, Denies frequent falls, Denies loss of vision, Denies numbness and Denies weakness Psychiatric Psychiatric: Denies anxiety, Denies behavioral changes, Denies confusion, Denies depression, Denies homicidal ideation and Denies suicidal ideation Endocrine Endocrine: Denies fatigue, Denies flushing and Denies palpitations Hematologic/Lymphatic Hematologic/Lymphatic: Denies easy bruising Allergic/Immunologic Allergic/Immunologic: Denies urticaria, Denies throat swelling and Denies wheezing Patient History <Da De Leon PA-C - Last Filed: 05/07/25 19:12> Medical History Lumbar radiculopathy Hip pain Sleep apnea (~2009) Depression Anxiety Fractures (~2010) Chronic back pain (~2022) Dry eyes Tinnitus Recurrent sinusitis Glaucoma (~2019) Cataracts, bilateral History of urinary incontinence (~2021) GERD (gastroesophageal reflux disease) Colon polyps Retinal defect with detachment (~2019) Osteopenia Coronary artery calcification Hyperlipidemia Sarcoidosis (~2022) Closed fibular fracture Shoulder pain, right Surgical History Anesthesia History of eyelid surgery History of rhinoplasty History of ankle surgery History of surgery on wrist History of thumb surgery History of shoulder surgery History of sinus surgery History of appendectomy History of tonsillectomy Family History Father Congestive heart failure Mother Hypertension Hyperlipidemia Mental health problem Stroke Grandmother Breast cancer Social History Smoking Status: Unknown if ever smoked Smoking Status: Never smoker Alcohol type: wine Exam <Da De Leon PA-C - Last Filed: 05/07/25 19:12> Narrative Exam Narrative: Const General:?cooperative, healthy appearing and comfortable [facility] Head:?normal to inspection Ears:?hearing grossly normal bilaterally Nose:?external nose normal Face and sinus:?normal facial exam and sinuses nontender Mouth:?oral mucosae normal Throat:?posterior oropharynx normal Eyes General:?appearance normal, both eyes and all related structures Neck Neck:?normal visual inspection and no lymphadenopathy noted Resp Effort & Inspection:?normal respiratory effort Auscultation:?clear to auscultation bilaterally Cardio Rate:?regular rate Rhythm:?regular rhythm Neuro General:?patient alert, patient awake and patient oriented x3 Initial Vital Signs Initial Vital Signs: Vital Signs Temperature 100.4 F H 05/07/25 16:17 Pulse Rate 69 05/07/25 16:17 Respiratory Rate 18 05/07/25 16:17 Blood Pressure 104/56 L 05/07/25 16:17 Pulse Oximetry 97 05/07/25 16:17 Oxygen Delivery Method Room Air 05/07/25 16:17 <Breezy Hodges MD - Last Filed: 05/08/25 06:25> Initial Vital Signs Initial Vital Signs: Vital Signs Temperature 100.4 F H 05/07/25 16:17 Pulse Rate 69 05/07/25 16:17 Respiratory Rate 18 05/07/25 16:17 Blood Pressure 104/56 L 05/07/25 16:17 Pulse Oximetry 97 05/07/25 16:17 Oxygen Delivery Method Room Air 05/07/25 16:17 <Melonie Canales MD - Last Filed: 05/09/25 07:45> Initial Vital Signs Initial Vital Signs: Vital Signs Temperature 100.4 F H 05/07/25 16:17 Pulse Rate 69 05/07/25 16:17 Respiratory Rate 18 05/07/25 16:17 Blood Pressure 104/56 L 05/07/25 16:17 Pulse Oximetry 97 05/07/25 16:17 Oxygen Delivery Method Room Air 05/07/25 16:17 Course <Da De Leon PA-C - Last Filed: 05/07/25 19:12> Orders Ordered: Discontinued Medications Sodium Chloride (Normal Saline 0.9%) 1,000 mls @ 1,000 mls/hr IV BOLUS ONE Stop: 05/07/25 20:01 Last Infusion: 05/07/25 21:08 Dose: Infused Documented By: Admin: 05/07/25 19:22 Dose: 1,000 mls/hr Documented By: RICARDOG Vital Signs Vital signs: Vital Signs - 8 hr 05/07/25 22:30 05/07/25 22:30 05/07/25 23:00 Pulse Rate 55 L Blood Pressure 112/56 L 95/54 L Pulse Oximetry 95 05/07/25 23:00 05/07/25 23:50 05/07/25 23:50 Pulse Rate 57 L 61 Blood Pressure 106/57 L Pulse Oximetry 97 97 05/08/25 00:00 05/08/25 00:00 Pulse Rate 62 Blood Pressure 123/58 L Pulse Oximetry 99 <Breezy Hodges MD - Last Filed: 05/08/25 06:25> Orders Ordered: Discontinued Medications Sodium Chloride (Normal Saline 0.9%) 1,000 mls @ 1,000 mls/hr IV BOLUS ONE Stop: 05/07/25 20:01 Last Infusion: 05/07/25 21:08 Dose: Infused Documented By: Admin: 05/07/25 19:22 Dose: 1,000 mls/hr Documented By: HNG Vital Signs Vital signs: Vital Signs - 8 hr 05/07/25 22:30 05/07/25 22:30 05/07/25 23:00 Pulse Rate 55 L Blood Pressure 112/56 L 95/54 L Pulse Oximetry 95 05/07/25 23:00 05/07/25 23:50 05/07/25 23:50 Pulse Rate 57 L 61 Blood Pressure 106/57 L Pulse Oximetry 97 97 05/08/25 00:00 05/08/25 00:00 Pulse Rate 62 Blood Pressure 123/58 L Pulse Oximetry 99 <Melonie Canales MD - Last Filed: 05/09/25 07:45> Orders Ordered: Discontinued Medications Sodium Chloride (Normal Saline 0.9%) 1,000 mls @ 1,000 mls/hr IV BOLUS ONE Stop: 05/07/25 20:01 Last Infusion: 05/07/25 21:08 Dose: Infused Documented By: Admin: 05/07/25 19:22 Dose: 1,000 mls/hr Documented By: HNG Vital Signs Vital signs: Vital Signs - 8 hr 05/07/25 22:30 05/07/25 22:30 05/07/25 23:00 Pulse Rate 55 L Blood Pressure 112/56 L 95/54 L Pulse Oximetry 95 05/07/25 23:00 05/07/25 23:50 05/07/25 23:50 Pulse Rate 57 L 61 Blood Pressure 106/57 L Pulse Oximetry 97 97 05/08/25 00:00 05/08/25 00:00 Pulse Rate 62 Blood Pressure 123/58 L Pulse Oximetry 99 MDM - URI/Sore Throat <Da De Leon PA-C - Last Filed: 05/07/25 19:12> Lab Data 05/07/25 19:40 05/07/25 19:40 Labs: Lab Results 05/07/25 Range/Units 19:40 WBC 13.8 H (4.5-11.0) X10^3/uL RBC 4.38 (4.0-5.2) X10^6/uL Hgb 13.3 (12.0-16.0) g/dL Hct 37.9 (36-46) % MCV 86.6 (80-100) fL MCH 30.3 (26-34) PG MCHC 35.0 (30-36) % RDW 14.8 (11.6-14.8) % Plt Count 189 (150-400) X10^3/uL Neut % (Auto) 88.1 H (50-75) % Lymph % (Auto) 7.7 L (25-40) % Nolan % (Auto) 3.8 (3-14) % Eos % (Auto) 0.1 L (2-4) % Baso % (Auto) 0.3 (0-2) % Neut # (Auto) 52430 H (8732-3803) /uL Lymph # (Auto) 1100 (9110-0245) /uL Nolan # (Auto) 500 (0-900) /uL Eos # (Auto) 0 (0-450) /uL Baso # (Auto) 0 (0-100) /uL Sodium 124 L (137-145) mmol/L Potassium 3.8 (3.4-5.1) mmol/L Chloride 94 L (98-107) mmol/L Carbon Dioxide 21 L (22-32) mmol/L BUN 17 (7-17) mg/dL Creatinine 1.07 H (0.52-1.04) mg/dL Estimated GFR 57 L (>60) mL/min BUN/Creatinine Ratio 15.9 (6-22) Glucose 116 H (70-99) mg/dL Lactate 0.8 (0.7-2.1) mmol/L Calcium 8.8 (8.4-10.2) mg/dL Total Bilirubin 0.9 (0.2-1.3) mg/dL AST 43 H (14-36) IU/L ALT 33 (<35) IU/L Alkaline Phosphatase 73 (38-126) U/L Total Protein 6.9 (6.3-8.2) g/dL Albumin 4.3 (3.5-5.0) g/dL Globulin 2.6 (1.7-4.1) g/dL Albumin/Globulin Ratio 1.7 (1.0-2.8) Urine Dip Bedside Urine Glucose Negative Bedside Urine Bilirubin - Negative Bedside Urine Ketone - Negative Urine Specific [place] 1.010 Bedside Urine Occult Blood - Negative Bedside Urine pH 6.5 Bedside Urine Protein - Negative Bedside Urine Urobilinogen - Negative Bedside Urine Nitrite - Negative Bedside Urine Leukocytes - Negative Esterase MDM Narrative Medical decision making narrative: 69-year-old female presents to the ED with a fever, shakes, nausea, diarrhea for the last few days. Concern for URI versus UTI versus dehydration versus other. Will obtain UA, respiratory panel. Respiratory panel is negative for COVID 19, influenza, RSV. Patient unable to produce a urine sample despite 3 bottles of water. Patient's blood pressure has trended down to 96/53 compared to an arrival blood pressure of 104/56. Will likely need IV fluids. Patient is signed out to Dr. Breezy Hodges at this time. Medical records reviewed: Yes 05/07/25, 1900, [place]. Sign-out from RASHAD De Leon. 69-year-old female with low-grade fever 100.4, presented to the walk-in clinic, in fast track emergency department for evaluation, initial systolic blood pressure 104, had nausea without vomiting, loose stools, COVID/flu swab negative, no urinalysis provided, no stool specimen evaluated. Was to be discharge per patient request but found to have blood pressure 90s, no tachycardia. Seems amenable to further evaluation. Cath urine if needed to obtain specimen. IV fluid bolus ordered. Assumed care. <Breezy Hodges MD - Last Filed: 05/08/25 06:25> Lab Data Attestation: I reviewed the patient's lab results. Lab results narrative: White blood cell count 04846, hemoglobin 13.3, platelets adequate. Glucose 116. Renal function normal. Sodium 124 low. Potassium 3.8 normal. Serum CO2 21 mildly decreased. AST slight elevation, other liver functions unremarkable. Lactate 0.8 normal. Urine dip negative. Labs: Lab Results 05/07/25 Range/Units 19:40 WBC 13.8 H (4.5-11.0) X10^3/uL RBC 4.38 (4.0-5.2) X10^6/uL Hgb 13.3 (12.0-16.0) g/dL Hct 37.9 (36-46) % MCV 86.6 (80-100) fL MCH 30.3 (26-34) PG MCHC 35.0 (30-36) % RDW 14.8 (11.6-14.8) % Plt Count 189 (150-400) X10^3/uL Neut % (Auto) 88.1 H (50-75) % Lymph % (Auto) 7.7 L (25-40) % Nolan % (Auto) 3.8 (3-14) % Eos % (Auto) 0.1 L (2-4) % Baso % (Auto) 0.3 (0-2) % Neut # (Auto) 50188 H (3771-7646) /uL Lymph # (Auto) 1100 (0298-8443) /uL Nolan # (Auto) 500 (0-900) /uL Eos # (Auto) 0 (0-450) /uL Baso # (Auto) 0 (0-100) /uL Sodium 124 L (137-145) mmol/L Potassium 3.8 (3.4-5.1) mmol/L Chloride 94 L (98-107) mmol/L Carbon Dioxide 21 L (22-32) mmol/L BUN 17 (7-17) mg/dL Creatinine 1.07 H (0.52-1.04) mg/dL Estimated GFR 57 L (>60) mL/min BUN/Creatinine Ratio 15.9 (6-22) Glucose 116 H (70-99) mg/dL Lactate 0.8 (0.7-2.1) mmol/L Calcium 8.8 (8.4-10.2) mg/dL Total Bilirubin 0.9 (0.2-1.3) mg/dL AST 43 H (14-36) IU/L ALT 33 (<35) IU/L Alkaline Phosphatase 73 (38-126) U/L Total Protein 6.9 (6.3-8.2) g/dL Albumin 4.3 (3.5-5.0) g/dL Globulin 2.6 (1.7-4.1) g/dL Albumin/Globulin Ratio 1.7 (1.0-2.8) Urine Dip Bedside Urine Glucose Negative Bedside Urine Bilirubin - Negative Bedside Urine Ketone - Negative Urine Specific [place] 1.010 Bedside Urine Occult Blood - Negative Bedside Urine pH 6.5 Bedside Urine Protein - Negative Bedside Urine Urobilinogen - Negative Bedside Urine Nitrite - Negative Bedside Urine Leukocytes - Negative Esterase Imaging Data Chest x-ray: Radiologist's Impression: Close Chest X-Ray (Signed) Iqra Hoyt - 05/07/[address] [address] XRay Report Signed Patient: Liberty Cardona MR#: [id number] : 1955 Acct:[id number] Age/Sex: 69 / F Date of Service: 05/07/25 Loc: ED Accession Number: [id number] Procedure: XR chest 2V Ordering Provider: Breezy Hodges MD PROCEDURE: XR CHEST 2V INDICATIONS: cough, low BP TECHNIQUE: 2 views of the chest were acquired. COMPARISON: [facility], CR, XR CHEST 2V, 12/27/2024, 8:57. FINDINGS: Surgical changes and devices: Right clavicular ORIF. Lungs and pleura: Lungs are clear. No pleural effusions or pneumothorax. Mediastinum: Mediastinal contours are normal. Heart size is normal. Bones and chest wall: No suspicious bony abnormalities. Soft tissues appear unremarkable. Old rib fractures. IMPRESSION: No acute pulmonary process. Dictated by: Iqra Hoyt M.D. on 05/07/2025 at 20:49 Approved by: Iqra Hoyt M.D. on 05/07/2025 at 20:49 MDM Narrative Medical decision making narrative: 69-year-old female presents to the ED with a fever, shakes, nausea, diarrhea for the last few days. Concern for URI versus UTI versus dehydration versus other. Will obtain UA, respiratory panel. Respiratory panel is negative for COVID 19, influenza, RSV. Patient unable to produce a urine sample despite 3 bottles of water. Patient's blood pressure has trended down to 96/53 compared to an arrival blood pressure of 104/56. Will likely need IV fluids. Patient is signed out to Dr. Breezy Hodges at this time. Medical records reviewed: Yes 05/07/25, 1900, [place]. Sign-out from RASHAD De Leon. 69-year-old female with low-grade fever 100.4, presented to the walk-in clinic, in fast track emergency department for evaluation, initial systolic blood pressure 104, had nausea without vomiting, loose stools, COVID/flu swab negative, no urinalysis provided, no stool specimen evaluated. Was to be discharge per patient request but found to have blood pressure 90s, no tachycardia. Seems amenable to further evaluation. Cath urine if needed to obtain specimen. IV fluid bolus ordered. Assumed care. Lab date: White blood cell count 52766, hemoglobin 13.3, platelets adequate. Glucose 116. Renal function normal. Sodium 124 low. Potassium 3.8 normal. Serum CO2 21 mildly decreased. AST slight elevation, other liver functions unremarkable. Lactate 0.8 normal. Urine dip negative. Hyponatremia sodium 124 noted, given IV fluids, blood pressure improved, symptoms improved. Consider repeat sodium level in close follow up later this week. She feels better when like to go home. Discharged home with family. We will follow up later with her PCP. Return precautions discussed. <Melonie Canales MD - Last Filed: 05/09/25 07:45> Lab Data Labs: Lab Results 05/07/25 Range/Units 19:40 WBC 13.8 H (4.5-11.0) X10^3/uL RBC 4.38 (4.0-5.2) X10^6/uL Hgb 13.3 (12.0-16.0) g/dL Hct 37.9 (36-46) % MCV 86.6 (80-100) fL MCH 30.3 (26-34) PG MCHC 35.0 (30-36) % RDW 14.8 (11.6-14.8) % Plt Count 189 (150-400) X10^3/uL Neut % (Auto) 88.1 H (50-75) % Lymph % (Auto) 7.7 L (25-40) % Nolan % (Auto) 3.8 (3-14) % Eos % (Auto) 0.1 L (2-4) % Baso % (Auto) 0.3 (0-2) % Neut # (Auto) 80627 H (4578-3523) /uL Lymph # (Auto) 1100 (1009-5587) /uL Nolan # (Auto) 500 (0-900) /uL Eos # (Auto) 0 (0-450) /uL Baso # (Auto) 0 (0-100) /uL Sodium 124 L (137-145) mmol/L Potassium 3.8 (3.4-5.1) mmol/L Chloride 94 L (98-107) mmol/L Carbon Dioxide 21 L (22-32) mmol/L BUN 17 (7-17) mg/dL Creatinine 1.07 H (0.52-1.04) mg/dL Estimated GFR 57 L (>60) mL/min BUN/Creatinine Ratio 15.9 (6-22) Glucose 116 H (70-99) mg/dL Lactate 0.8 (0.7-2.1) mmol/L Calcium 8.8 (8.4-10.2) mg/dL Total Bilirubin 0.9 (0.2-1.3) mg/dL AST 43 H (14-36) IU/L ALT 33 (<35) IU/L Alkaline Phosphatase 73 (38-126) U/L Total Protein 6.9 (6.3-8.2) g/dL Albumin 4.3 (3.5-5.0) g/dL Globulin 2.6 (1.7-4.1) g/dL Albumin/Globulin Ratio 1.7 (1.0-2.8) Urine Dip Bedside Urine Glucose Negative Bedside Urine Bilirubin - Negative Bedside Urine Ketone - Negative Urine Specific [place] 1.010 Bedside Urine Occult Blood - Negative Bedside Urine pH 6.5 Bedside Urine Protein - Negative Bedside Urine Urobilinogen - Negative Bedside Urine Nitrite - Negative Bedside Urine Leukocytes - Negative Esterase Discharge Plan Departure Patient Disposition: Home Clinical Impression: Upper respiratory infection, Hyponatremia Activity Restrictions/Additional Instructions: Low-grade fever noted, initial fast track triage was going to be discharge but lower blood pressure noted, without associated fast heart rate. Transitioned over to the main Emergency Department, where further workup was initiated. Chest x-ray was performed and was negative. COVID flu RSV swab was negative. Urine dip negative for infection. Screening labs not obvious for sources of infection. You did happened to have a low sodium at 124, this is not usually treated as an inpatient setting unless it approaches 120 or less. This is not a normal finding however, and should be rechecked in follow up. You were given IV normal saline fluids bolus. Your blood pressure improved. Recheck with your regular doctor in the next couple of days for review of symptoms and repeat lab assessment of your sodium. Return earlier to this/nearest emergency department for any change worsening symptoms or any concerns prior. Prescriptions: No Action omega 3-lqb-ffw-fish oil [Fish Oil] 1,000 mg (120 mg-180 mg) capsule 2 cap PO DAILY omeprazole 20 mg capsule,delayed release(DR/EC) 20 mg PO DAILY amlodipine 5 mg tablet 5 mg PO DAILY losartan 50 mg tablet 50 mg PO DAILY estradiol 10 mcg tablet 10 mcg vaginal 2XW difluprednate 0.05 % drops EYE-BOTH hydroxyzine HCl 25 mg tablet 25 mg PO BID methotrexate sodium 2.5 mg tablet 10 mg PO QWEEK Qty: 84 3RF Rx Instructions: dose change. doxycycline hyclate 100 mg capsule 100 mg PO BID 7 Days Qty: 14 0RF gabapentin 300 mg capsule 300 mg PO TID Qty: 90 1RF icosapent ethyl 0.5 gram capsule 1 g PO BID atorvastatin 10 mg tablet 10 mg PO DAILY Referrals: Susana Camacho MD [Primary Care Provider, Family Practice] Stand Alone Forms: Patient Portal/API ED Sign-out <Melonie Canales MD - Last Filed: 05/09/25 07:45> Cosign ED Attending Cosignature Attestation: I was immediately available in the department for consultation throughout this patient's visit. Melonie Canales MD
[2025-05-07] MEDS: SODIUM CHLORIDE 0.9% 1,000 ML 1000 ML IV (19:22)
[2025-05-07 19:58] LABS: Add Manual Diff / Slide Review NO; Basophils Absolute Auto 0 /uL (0-100); Basophils Percent Auto 0.3 % (0-2); Eosinophils Absolute Auto 0 /uL (0-450); Eosinophils Percent Auto 0.1 % (2-4); Hematocrit 37.9 % (36-46); Hemoglobin 13.3 g/dL (12.0-16.0); Lymphocytes Absolute Auto 1100 /uL (1100-4500); Lymphocytes Percent Auto 7.7 % (25-40); Mean Corpuscular Hemoglobin 30.3 PG (26-34); Mean Corpuscular Volume 86.6 fL (80-100); Monocytes Absolute Auto 500 /uL (0-900); Monocytes Percent Auto 3.8 % (3-14); Neutrophils Absolute Auto 12100 /uL (1500-7000); Neutrophils Percent Auto 88.1 % (50-75); Platelet Count 189 X10^3/uL (150-400); Red Blood Cell Count 4.38 X10^6/uL (4.0-5.2); Red Cell Distribution Width 14.8 % (11.6-14.8); White Blood Cell Count 13.8 X10^3/uL (4.5-11.0)
[2025-05-07 20:02] LABS: Lactate (Lactic Acid) 0.8 mmol/L (0.7-2.1)
[2025-05-07 20:03] LABS: Alanine Aminotransferase 33 IU/L (<35); Albumin 4.3 g/dL (3.5-5.0); Albumin Globulin Ratio 1.7 (1.0-2.8); Alkaline Phosphatase 73 U/L (38-126); Aspartate Aminotransferase 43 IU/L (14-36); BUN Creatinine Ratio 15.9 (6-22); Bilirubin Total 0.9 mg/dL (0.2-1.3); Blood Urea Nitrogen 17 mg/dL (7-17); Calcium 8.8 mg/dL (8.4-10.2); Carbon Dioxide 21 mmol/L (22-32); Chloride 94 mmol/L (98-107); Estimated Glomerular Filt Rate 57 mL/min (>60); Globulin 2.6 g/dL (1.7-4.1); Glucose 116 mg/dL (70-99); HEMOLYSIS < 15 (0-50); Potassium 3.8 mmol/L (3.4-5.1); Sodium 124 mmol/L (137-145); Total Protein 6.9 g/dL (6.3-8.2)
--- NOTE | 2025-05-07 20:08 | DI.RAD.S_ITS ---
PROCEDURE: XR CHEST 2V INDICATIONS: cough, low BP TECHNIQUE: 2 views of the chest were acquired. COMPARISON: [facility], CR, XR CHEST 2V, 12/27/2024, 8:57. FINDINGS: Surgical changes and devices: Right clavicular ORIF. Lungs and pleura: Lungs are clear. No pleural effusions or pneumothorax. Mediastinum: Mediastinal contours are normal. Heart size is normal. Bones and chest wall: No suspicious bony abnormalities. Soft tissues appear unremarkable. Old rib fractures. IMPRESSION: No acute pulmonary process. Dictated by: Iqra Hoyt M.D. on 05/07/2025 at 20:49 Approved by: Iqra Hoyt M.D. on 05/07/2025 at 20:49
[2025-05-08] VITALS: BP 123/58; PULSE 62; O2SAT 99
== END 2025-05-08 00:09 | disposition home or self-care (01) ==
PROVIDERS: Emergency Provider Emergency Medicine; PCP Family Medicine
DX: J06.9 Acute upper respiratory infection, unspecified (principal); E87.1 Hypo-osmolality and hyponatremia; R50.9 Fever, unspecified
CPT/HCPCS: 0241U; 36415; 71046; 80053; 81003; 83605; 85025; 96360; 96361; 99284

== ENCOUNTER 2025-05-08 11:56 | Emergency (ER) | payer MEDICARE, OTHER, SELFPAY ==
[2025-05-08] VITALS (13 sets, daily range): BP systolic 101–130; BP diastolic 52–64; PULSE 63–68; RESP 13; TEMP 36.7; O2SAT 92–99; BMI 26.4
--- NOTE | 2025-05-08 13:09 | PC.NURSE ---
Pt reports being DC'd early this morning around 2am. worked up for her fever. having intermittent fever and LLL pain with large circumfrential petechial rash from just below knee to ankle and seperate spot on upper L thigh, both marked with surgical skin pen. BP soft 101-110/systolic which she states is not normal for her. afebrile at this time however took tylenol prior to leaving home.
[2025-05-08 13:10] LABS: Add Manual Diff / Slide Review NO; Basophils Absolute Auto 0 /uL (0-100); Basophils Percent Auto 0.4 % (0-2); Eosinophils Absolute Auto 0 /uL (0-450); Eosinophils Percent Auto 0.4 % (2-4); Hematocrit 37.2 % (36-46); Hemoglobin 13.1 g/dL (12.0-16.0); Lymphocytes Absolute Auto 900 /uL (1100-4500); Mean Corpuscular HGB Conc 35.1 % (30-36); Mean Corpuscular Hemoglobin 30.4 PG (26-34); Mean Corpuscular Volume 86.6 fL (80-100); Monocytes Absolute Auto 600 /uL (0-900); Neutrophils Absolute Auto 8500 /uL (1500-7000); Neutrophils Percent Auto 84.2 % (50-75); Platelet Count 171 X10^3/uL (150-400); Red Cell Distribution Width 14.5 % (11.6-14.8); White Blood Cell Count 10.1 X10^3/uL (4.5-11.0)
[2025-05-08 13:15] LABS: INR 1.1 (0.9-1.3); Prothrombin Time 11.9 SECONDS (9.4-12.5)
--- NOTE | 2025-05-08 13:15 | ED.SKABFB ---
HPI - Skin/Abscess/Foreign Bdy General Chief complaint: Skin/Abscess/Foreign Body Stated complaint: Pain in left leg rash seen last night here Time Seen by Provider: 05/08/25 13:05 Source: patient Mode of arrival: Ambulatory Limitations: no limitations History of Present Illness HPI narrative: Patient is a 69-year-old female with a past medical history hypertension, hyperlipidemia, presents to the emergency department from home for evaluation of a rash, she states that was seen here yesterday for fever, states that she noticed a rash on her left lower leg as well as pain in the left lower leg. She denies any other symptoms such as headache visual disturbances tetanus is making shortness of breath nausea vomiting abdominal pain or any other GI/ symptoms time. She states that she did not really notice the redness until this morning. States that she called her primary care doctor's office in the instructed come into the ED for further evaluation treatment. Related Data Home Medications ?Medication ?Instructions ?Recorded ?Confirmed amlodipine 5 mg tablet 5 mg PO DAILY 01/23/24 03/06/25 losartan 50 mg tablet 50 mg PO DAILY 01/23/24 03/06/25 omeprazole 20 mg capsule,delayed 20 mg PO DAILY 01/23/24 03/06/25 release omega 8-scy-tuc-fish oil 1,000 mg 2 cap PO DAILY 01/30/24 03/06/25 (120 mg-180 mg) capsule (Fish Oil) difluprednate 0.05 % eye drops drp EYE-BOTH 04/20/24 03/06/25 estradiol 10 mcg vaginal tablet 10 mcg vaginal 2XW 04/20/24 03/06/25 hydroxyzine HCl 25 mg tablet 25 mg PO BID 04/20/24 03/06/25 atorvastatin 10 mg tablet 10 mg PO DAILY 01/24/25 03/06/25 icosapent ethyl 0.5 gram capsule 1 g PO BID 02/06/25 03/06/25 Previous Rx's ?Medication ?Instructions ?Recorded gabapentin 300 mg capsule 300 mg PO TID #90 caps 01/28/25 methotrexate sodium 2.5 mg tablet 10 mg (4 x 2.5 mg) PO QWEEK #84 02/07/25 tabs doxycycline hyclate 100 mg capsule 100 mg PO BID 1 week #14 caps 05/08/25 Allergies Allergy/AdvReac Type Severity Reaction Status Date / Time [facility] Allergy Severe swelling Verified 05/08/25 12:06 Penicillins Allergy Severe swelling Verified 05/08/25 12:06 Sulfa (Sulfonamide Allergy Intermediate swelling Verified 05/08/25 12:06 Antibiotics) of feet Review of Systems Review of Systems Narrative: General: Denies fever, chills, weight loss HEENT: Denies headache, eye drainage, eye irritation, head trauma, sore throat, voice change Cardiovascular: Denies any chest pain, palpitations, tachycardia Respiratory: Denies any shortness of breath, cough, wheeze, stridor GI/: Denies any abdominal pain, nausea, vomiting, diarrhea, bright red blood per rectum, melanotic stools, urinary frequency, urinary retention, dysuria, hematuria MSK: Left leg redness Skin: Denies any rashes, lesions, discoloration Neuro: Denies any headache, lightheadedness, dizziness, fainting, weakness Psych: Denies SI/HI Patient History Medical History Lumbar radiculopathy Hip pain Sleep apnea (~2009) Depression Anxiety Fractures (~2010) Chronic back pain (~2022) Dry eyes Tinnitus Recurrent sinusitis Glaucoma (~2019) Cataracts, bilateral History of urinary incontinence (~2021) GERD (gastroesophageal reflux disease) Colon polyps Retinal defect with detachment (~2019) Osteopenia Coronary artery calcification Hyperlipidemia Sarcoidosis (~2022) Closed fibular fracture Shoulder pain, right Surgical History Anesthesia History of eyelid surgery History of rhinoplasty History of ankle surgery History of surgery on wrist History of thumb surgery History of shoulder surgery History of sinus surgery History of appendectomy History of tonsillectomy Family History Father Congestive heart failure Mother Hypertension Hyperlipidemia Mental health problem Stroke Grandmother Breast cancer Social History Smoking Status: Unknown if ever smoked Smoking Status: Unknown if ever smoked Alcohol type: wine Exam Narrative Exam Narrative: General: Cooperative, well-developed, not in acute distress HEENT: Normocephalic, atraumatic, PERRLA, normal sclera, eyelids normal Neck: Active full range of motion, atraumatic Chest: Normal to inspection, negative crepitus, no overlying erythema ecchymosis Respiratory: Normal respiratory effort, not in acute respiratory distress, clear to auscultation bilaterally negative cough, wheeze, tachypnea, rhonchi, rales Cardiology: Regular rate rhythm negative gallop, murmur, rubs GI/: No tenderness to palpation, soft, non rigid, normal to inspection, exam deferred MSK: Full active range of motion in all 4 extremities, atraumatic, left lower extremity erythematous but no no tenderness to palpation neurovascularly intact Skin: No rashes or lesions noted Neuro: Alert awake oriented x3, moves all 4 extremities spontaneously, cranial nerves intact, able to answer all questions appropriately follows commands appropriately Psych: Cooperative, negative suicidal or homicidal ideations Initial Vital Signs Initial Vital Signs: Vital Signs Temperature 98.0 F 05/08/25 11:57 Pulse Rate 68 05/08/25 11:57 Respiratory Rate 13 05/08/25 11:57 Blood Pressure 120/58 L 05/08/25 11:57 Pulse Oximetry 97 05/08/25 11:57 Oxygen Delivery Method Room Air 05/08/25 11:57 Course Orders Ordered: ED Orders 05/08/25 13:00 Complete Blood Count AUTO DIFF Stat Comprehensive Metabolic Panel Stat Lactate (Lactic Acid) Stat Lipase Stat PTT Partial Thromboplastin Terrance Stat Procalcitonin Stat Prothrombin Time INR Stat 05/08/25 13:03 EKG-12 Lead Stat RT Consult Eval and Treat NOW 05/08/25 13:12 Blood Culture Stat 05/08/25 13:56 US periph venous low extrem lt Stat Vancomycin HCl/Dextrose (Vancomycin) 1,500 mg in 300 mls @ 200 mls/hr IV NOW ONE Stop: 05/08/25 16:14 Last Admin: 05/08/25 14:44 Dose: 200 mls/hr Documented By: JUANCARLOS Ondansetron HCl (Ondansetron 4 Mg/2 Ml Inj) 4 mg IV NOW PRN PRN Reason: Nausea And Vomiting Ondansetron HCl (Ondansetron 4 Mg Odt) 4 mg PO NOW PRN PRN Reason: Nausea And Vomiting Discontinued Medications Sodium Chloride (Normal Saline 0.9%) 1,000 mls @ 1,000 mls/hr IV BOLUS ONE Stop: 05/08/25 14:02 Last Infusion: 05/08/25 15:03 Dose: Infused Documented By: Admin: 05/08/25 13:35 Dose: 1,000 mls/hr Documented By: JUANCARLOS Vital Signs Vital signs: Vital Signs - 8 hr 05/08/25 11:57 05/08/25 12:01 05/08/25 12:02 Temperature 98.0 F Pulse Rate 68 67 68 Respiratory Rate 13 Blood Pressure 120/58 L Pulse Oximetry 97 96 94 Oxygen Delivery Method Room Air 05/08/25 12:02 05/08/25 12:30 05/08/25 12:30 Temperature Pulse Rate 65 Respiratory Rate Blood Pressure 111/52 L 101/56 L Pulse Oximetry 92 Oxygen Delivery Method 05/08/25 13:00 05/08/25 13:30 05/08/25 14:00 Temperature Pulse Rate 65 68 64 Respiratory Rate Blood Pressure Pulse Oximetry 96 96 98 Oxygen Delivery Method 05/08/25 14:30 Temperature Pulse Rate 64 Respiratory Rate Blood Pressure Pulse Oximetry 99 Oxygen Delivery Method MDM - Skin/Abscess/Foreign Bdy Differential Diagnosis Differential diagnosis: Likely other (DVT, cellulitis, electrolyte abnormality) Lab Data 05/08/25 13:00 05/08/25 13:00 Labs: Lab Results 05/08/25 Range/Units 13:00 WBC 10.1 (4.5-11.0) X10^3/uL RBC 4.30 (4.0-5.2) X10^6/uL Hgb 13.1 (12.0-16.0) g/dL Hct 37.2 (36-46) % MCV 86.6 (80-100) fL MCH 30.4 (26-34) PG MCHC 35.1 (30-36) % RDW 14.5 (11.6-14.8) % Plt Count 171 (150-400) X10^3/uL Neut % (Auto) 84.2 H (50-75) % Lymph % (Auto) 9.0 L (25-40) % [place] % (Auto) 6.0 (3-14) % Eos % (Auto) 0.4 L (2-4) % Baso % (Auto) 0.4 (0-2) % Neut # (Auto) 8500 H (8881-0320) /uL Lymph # (Auto) 900 L (9449-2632) /uL [place] # (Auto) 600 (0-900) /uL Eos # (Auto) 0 (0-450) /uL Baso # (Auto) 0 (0-100) /uL PT 11.9 (9.4-12.5) SECONDS INR 1.1 (0.9-1.3) APTT 31 (25.1-36.5) SECONDS Sodium 131 L (137-145) mmol/L Potassium 4.0 (3.4-5.1) mmol/L Chloride 100 (98-107) mmol/L Carbon Dioxide 23 (22-32) mmol/L BUN 13 (7-17) mg/dL Creatinine 0.96 (0.52-1.04) mg/dL Estimated GFR > 60 (>60) mL/min BUN/Creatinine Ratio 13.5 (6-22) Glucose 119 H (70-99) mg/dL Lactate 1.1 (0.7-2.1) mmol/L Calcium 8.8 (8.4-10.2) mg/dL Total Bilirubin 0.6 (0.2-1.3) mg/dL AST 46 H (14-36) IU/L ALT 43 H (<35) IU/L Alkaline Phosphatase 74 (38-126) U/L Total Protein 6.7 (6.3-8.2) g/dL Albumin 4.1 (3.5-5.0) g/dL Globulin 2.6 (1.7-4.1) g/dL Albumin/Globulin Ratio 1.6 (1.0-2.8) Lipase 89 (23-300) U/L Procalcitonin 0.636 H (<0.5) ng/mL Imaging Data US - DVT: Radiologist's Impression: [address] [address] Ultrasound Report Signed Patient: Liberty Cardona MR#: [id number] : 1955 Acct:[id number] Age/Sex: 69 / F Date of Service: 05/08/25 Loc: ED Accession Number: [id number] Procedure: US periph venous low extrem lt Ordering Provider: Karan Vasquez D.O. PROCEDURE: US PERIPH VENOUS LOW EXTREM LT INDICATIONS: r/o dvt TECHNIQUE: Real-time imaging, as well as color and pulse Doppler interrogation, were performed of the lower extremity deep veins from the inguinal ligament to the popliteal fossa, with documentation of the visualized calf veins. COMPARISON: None. FINDINGS: The common femoral, femoral, popliteal, and the visualized calf veins are normally compressible, and free of intraluminal thrombus. Color and pulse Doppler demonstrate normal phasic intraluminal flow. There is normal augmentation response to distal compression maneuver. IMPRESSION: No findings of lower extremity deep venous thrombosis. MDM Narrative Medical decision making narrative: Patient is a 69-year-old female without any significant past medical history come into the ED from home for evaluation of left leg redness, states she was seen here yesterday for a fever, but she states that she did not mention her left leg swelling redness, she states that she called her primary care office for follow up and stated to be evaluated here. Patient denies any trauma or falls. Review of workup did not show any acute findings from yesterday's visit on 05/07/2025. On exam erythema noted to the left lower extremity ordered prophylactic antibiotics for cellulitis, no leukocytosis remaining lab work unremarkable. Patient did have DVT study performed here in the emergency department did not show signs of acute DVT. Patient was given dose of IV vancomycin here in the emergency department and will be discharged home with oral antibiotics for left lower extremity cellulitis. Patient was instructed follow up with primary care in outpatient setting she verbalized understanding of this and agrees to being discharged home with outpatient follow up Discharge Plan Departure Patient Disposition: Home Clinical Impression: Cellulitis Instructions: DI for Cellulitis -- Adult Activity Restrictions/Additional Instructions: Please follow up with your primary care doctor Please read the discharge instructions sheet carefully and bring all papers to all doctor follow-up visits, as it may contain information that your doctor may want to see. Disease processes change and evolve, if your symptoms worsen or if you develop any new symptoms that are concerning to you please return for evaluation. Your evaluation today does not show any evidence of any life-threatening/serious illnesses requiring admission to the hospital or surgery. Please follow-up with your doctor for re-evaluation in approximately 1 day. Seek immediate medical attention for any worrisome symptoms. *If you do not have a primary care provider please contact the [facility] Resource line at [phone]. They will ask some questions about your medical history and help get you set up with a doctor in the community. Prescriptions: New doxycycline hyclate 100 mg capsule 100 mg PO BID 7 Days Qty: 14 0RF No Action omega 2-qkn-rje-fish oil [Fish Oil] 1,000 mg (120 mg-180 mg) capsule 2 cap PO DAILY omeprazole 20 mg capsule,delayed release(DR/EC) 20 mg PO DAILY amlodipine 5 mg tablet 5 mg PO DAILY losartan 50 mg tablet 50 mg PO DAILY estradiol 10 mcg tablet 10 mcg vaginal 2XW difluprednate 0.05 % drops EYE-BOTH hydroxyzine HCl 25 mg tablet 25 mg PO BID methotrexate sodium 2.5 mg tablet 10 mg PO QWEEK Qty: 84 3RF Rx Instructions: dose change. gabapentin 300 mg capsule 300 mg PO TID Qty: 90 1RF icosapent ethyl 0.5 gram capsule 1 g PO BID atorvastatin 10 mg tablet 10 mg PO DAILY Referrals: Susana Camacho MD [Primary Care Provider, Family Practice] Stand Alone Forms: Patient Portal/API
[2025-05-08 13:17] LABS: PTT Partial Thromboplastin Tim 31 SECONDS (25.1-36.5)
[2025-05-08 13:19] LABS: Lactate (Lactic Acid) 1.1 mmol/L (0.7-2.1)
[2025-05-08 13:20] LABS: Alanine Aminotransferase 43 IU/L (<35); Albumin 4.1 g/dL (3.5-5.0); Albumin Globulin Ratio 1.6 (1.0-2.8); Alkaline Phosphatase 74 U/L (38-126); Aspartate Aminotransferase 46 IU/L (14-36); BUN Creatinine Ratio 13.5 (6-22); Bilirubin Total 0.6 mg/dL (0.2-1.3); Blood Urea Nitrogen 13 mg/dL (7-17); Calcium 8.8 mg/dL (8.4-10.2); Carbon Dioxide 23 mmol/L (22-32); Chloride 100 mmol/L (98-107); Estimated Glomerular Filt Rate > 60 mL/min (>60); Globulin 2.6 g/dL (1.7-4.1); Glucose 119 mg/dL (70-99); HEMOLYSIS < 15 (0-50); Lipase 89 U/L (23-300); Sodium 131 mmol/L (137-145); Total Protein 6.7 g/dL (6.3-8.2)
[2025-05-08] MEDS: SODIUM CHLORIDE 0.9% 1,000 ML 1000 ML IV (13:35)
[2025-05-08 13:36] LABS: Procalcitonin 0.636 ng/mL (<0.5)
--- NOTE | 2025-05-08 13:56 | DI.US.S_ITS ---
PROCEDURE: US PERIPH VENOUS LOW EXTREM LT INDICATIONS: r/o dvt TECHNIQUE: Real-time imaging, as well as color and pulse Doppler interrogation, were performed of the lower extremity deep veins from the inguinal ligament to the popliteal fossa, with documentation of the visualized calf veins. COMPARISON: None. FINDINGS: The common femoral, femoral, popliteal, and the visualized calf veins are normally compressible, and free of intraluminal thrombus. Color and pulse Doppler demonstrate normal phasic intraluminal flow. There is normal augmentation response to distal compression maneuver. IMPRESSION: No findings of lower extremity deep venous thrombosis. Dictated by: Shamar Parikh M.D. on 05/08/2025 at 14:42 Approved by: Shamar Parikh M.D. on 05/08/2025 at 14:49
[2025-05-08] MEDS: VANCOMYCIN 1,500 MG/300 ML PIGGYBACK 200 MG IV (14:44)
== END 2025-05-08 16:34 | disposition home or self-care (01) ==
PROVIDERS: Emergency Provider Student in an Organized Health Care Education/Training Program; PCP Family Medicine
DX: L03.116 Cellulitis of left lower limb (principal)
CPT/HCPCS: 36415; 80053; 83605; 83690; 84145; 85025; 85610; 85730; 87040; 93971; 99284

== ENCOUNTER 2025-05-11 13:39 | Inpatient (IN) | payer MEDICARE, OTHER, SELFPAY ==
[2025-05-11] VITALS (11 sets, daily range): BP systolic 104–145; BP diastolic 59–73; PULSE 65–75; RESP 16–18; TEMP 36.1–36.4; O2SAT 94–99; BMI 25.7
--- NOTE | 2025-05-11 13:54 | ED.SKABFB ---
HPI - Skin/Abscess/Foreign Bdy General Chief complaint: Skin/Abscess/Foreign Body Stated complaint: Returning; Cellulitis L Leg, Worsening Pain Time Seen by Provider: 05/11/25 13:48 Source: patient Mode of arrival: Ambulatory History of Present Illness HPI narrative: 69-year-old woman with a history of hyperlipidemia, hypertension, sarcoidosis on 10 mg of methotrexate weekly was seen on the and the and for lower extremity swelling redness and pain. DVT study on the was negative for any clot. On the white count was 13.8, on the that was down to 10.1. No anemia, chemistries are minimally changed, procalcitonin is slightly elevated. She has almost completed her doxycycline but symptoms continue to worsen, she is having increasing swelling to the point that she is almost developing bulla over the calf. On the there has been a small amount of erythema in the medial aspect of the upper thigh and that has completely resolved. She states that she generally does not feel well but does not feel acutely toxic either. She does not describe fevers, cough, nausea, abdominal pain, palpitation Related Data Home Medications ?Medication ?Instructions ?Recorded ?Confirmed amlodipine 5 mg tablet 5 mg PO DAILY 01/23/24 05/09/25 losartan 50 mg tablet 50 mg PO DAILY 01/23/24 05/09/25 omeprazole 20 mg capsule,delayed 20 mg PO DAILY 01/23/24 05/09/25 release difluprednate 0.05 % eye drops drp EYE-BOTH 04/20/24 05/09/25 estradiol 10 mcg vaginal tablet 10 mcg vaginal 2XW 04/20/24 05/09/25 hydroxyzine HCl 25 mg tablet 25 mg PO BID 04/20/24 05/09/25 atorvastatin 10 mg tablet 10 mg PO DAILY 01/24/25 05/09/25 icosapent ethyl 0.5 gram capsule 1 g PO BID 02/06/25 05/09/25 ezetimibe 10 mg tablet (Zetia) 10 mg PO DAILY 05/11/25 05/11/25 Previous Rx's ?Medication ?Instructions ?Recorded methotrexate sodium 2.5 mg tablet 10 mg (4 x 2.5 mg) PO QWEEK #84 02/07/25 tabs doxycycline hyclate 100 mg capsule 100 mg PO BID 1 week #14 caps 05/08/25 Allergies Allergy/AdvReac Type Severity Reaction Status Date / Time levofloxacin (From Levaquin) Allergy Severe swelling Verified 05/11/25 13:49 Penicillins Allergy Severe swelling Verified 05/11/25 13:49 Sulfa (Sulfonamide Allergy Intermediate swelling Verified 05/11/25 13:49 Antibiotics) of feet Patient History Medical History Lumbar radiculopathy Hip pain Sleep apnea (~2009) Depression Anxiety Fractures (~2010) Chronic back pain (~2022) Dry eyes Tinnitus Recurrent sinusitis Glaucoma (~2019) Cataracts, bilateral History of urinary incontinence (~2021) GERD (gastroesophageal reflux disease) Colon polyps Retinal defect with detachment (~2019) Osteopenia Coronary artery calcification Hyperlipidemia Sarcoidosis (~2022) Closed fibular fracture Shoulder pain, right Surgical History Anesthesia History of eyelid surgery History of rhinoplasty History of ankle surgery History of surgery on wrist History of thumb surgery History of shoulder surgery History of sinus surgery History of appendectomy History of tonsillectomy Family History Father Congestive heart failure Mother Hypertension Hyperlipidemia Mental health problem Stroke Grandmother Breast cancer Social History household members: spouse Smoking Status: Never smoker Alcohol type: wine Exam Initial Vital Signs Initial Vital Signs: Vital Signs Temperature 97.0 F L 05/11/25 13:49 Pulse Rate 75 05/11/25 13:49 Respiratory Rate 18 05/11/25 13:49 Blood Pressure 119/59 L 05/11/25 13:49 Pulse Oximetry 98 05/11/25 13:49 Oxygen Delivery Method Room Air 05/11/25 13:49 General: Healthy appearing, in no acute distress. Able to give a complete and coherent history. Well-nourished well-developed Respiratory: Lungs are clear to auscultation, no wheezing no rales no rhonchi. Full and symmetrical air movement Cardiac: Regular rate and rhythm no murmurs no bruits Abdomen: Soft, nontender, no rebound or guarding, no flank pain Skin: No skin lesions or concerns for cutaneous vasculitis other than abnormalities to the left lower extremity Neurologic: Grossly neurologically intact with no obvious asymmetries or abnormalities Extremities: Left lower extremity with increased edema, tense with concern for bullous formation, no ulceration, no obvious drainage. Pictures from the indicate that it is far more erythematous. Psych: Cooperative, appropriate insight and affect Course Orders Ordered: ED Orders 05/11/25 14:28 Blood Culture Stat Complete Blood Count AUTO DIFF Stat Comprehensive Metabolic Panel Stat Erythrocyte Sedimentation Rate Stat Lactate (Lactic Acid) Stat Discontinued Medications Ceftriaxone Sodium 2,000 mg/ (Sodium Chloride) 100 mls @ 200 mls/hr IV NOW ONE Stop: 05/11/25 14:32 Last Infusion: 05/11/25 15:21 Dose: Infused Ketorolac Tromethamine (Ketorolac 30 Mg/Ml Vial) 15 mg IV NOW ONE Stop: 05/11/25 15:12 Last Admin: 05/11/25 15:21 Dose: 15 mg Vital Signs Vital signs: Vital Signs - 8 hr 05/11/25 13:49 05/11/25 14:36 05/11/25 14:38 Temperature 97.0 F L Pulse Rate 75 66 68 Respiratory Rate 18 Blood Pressure 119/59 L Pulse Oximetry 98 99 97 Oxygen Delivery Method Room Air Room Air 05/11/25 14:38 05/11/25 15:00 05/11/25 15:00 Temperature Pulse Rate 67 Respiratory Rate Blood Pressure 104/67 113/59 L Pulse Oximetry 94 Oxygen Delivery Method 05/11/25 15:30 05/11/25 15:30 Temperature Pulse Rate 66 Respiratory Rate Blood Pressure 120/60 Pulse Oximetry 96 Oxygen Delivery Method Room Air MDM - Skin/Abscess/Foreign Bdy Lab Data 05/11/25 14:04 05/11/25 14:04 Labs: Lab Results 05/11/25 Range/Units 14:04 WBC 10.4 (4.5-11.0) X10^3/uL RBC 4.50 (4.0-5.2) X10^6/uL Hgb 13.5 (12.0-16.0) g/dL Hct 38.9 (36-46) % MCV 86.5 (80-100) fL MCH 30.1 (26-34) PG MCHC 34.8 (30-36) % RDW 14.4 (11.6-14.8) % Plt Count 259 (150-400) X10^3/uL Neut % (Auto) 69.8 (50-75) % Lymph % (Auto) 18.3 L (25-40) % [place] % (Auto) 9.2 (3-14) % Eos % (Auto) 2.3 (2-4) % Baso % (Auto) 0.4 (0-2) % Neut # (Auto) 7200 H (2658-4154) /uL Lymph # (Auto) 1900 (2931-2551) /uL [place] # (Auto) 1000 H (0-900) /uL Eos # (Auto) 200 (0-450) /uL Baso # (Auto) 0 (0-100) /uL ESR 45 H (0-20) MM/HR Sodium 139 (137-145) mmol/L Potassium 3.9 (3.4-5.1) mmol/L Chloride 102 (98-107) mmol/L Carbon Dioxide 24 (22-32) mmol/L BUN 15 (7-17) mg/dL Creatinine 1.25 H (0.52-1.04) mg/dL Estimated GFR 47 L (>60) mL/min BUN/Creatinine Ratio 12.0 (6-22) Glucose 108 H (70-99) mg/dL Lactate 1.1 (0.7-2.1) mmol/L Calcium 9.4 (8.4-10.2) mg/dL Total Bilirubin 0.5 (0.2-1.3) mg/dL AST 40 H (14-36) IU/L ALT 48 H (<35) IU/L Alkaline Phosphatase 119 (38-126) U/L Total Protein 7.6 (6.3-8.2) g/dL Albumin 4.5 (3.5-5.0) g/dL Globulin 3.1 (1.7-4.1) g/dL Albumin/Globulin Ratio 1.5 (1.0-2.8) MDM Narrative Medical decision making narrative: CC: Lower extremity warmth redness unresponsive to oral doxycycline Complicating co-morbidities: Hypertension, hyperlipidemia, sarcoid Data collected from: patient Medical records reviewed: Recent family practice visit from the , ER visit from the and the all related to current complaints are reviewed Differential considered: Failed outpatient treatment of lower extremity cellulitis, vasculitis, this does not look like cutaneous sarcoid, DVT was ruled out on the , she does have good capillary refill distally Exam documented above, pertinent findings include: Left lower extremity increased violaceous erythema of the lower extremity, tense edema, no obvious skin breakdown, ulceration or drainage. No inguinal adenopathy remainder of exam is benign Lab Test results independently reviewed as above. Pertinent findings: CBC is unremarkable Treatments: Ceftriaxone, Toradol, Percocet Discussion: 69-year-old woman with left lower extremity cellulitis not responding to outpatient treatment with doxycycline, strep cellulitis is certainly a possibility, complicating vasculitis within the differential. There was no evidence of sepsis, no evidence of DVT. She is started on ceftriaxone, care is discussed with the hospitalist service and she will be admitted for IV antibiotics for failed outpatient treatment of a lower extremity cellulitis Discharge Plan Departure Patient Disposition: Admitted As Inpatient Clinical Impression: Cellulitis Qualifiers: Site of cellulitis: extremity Site of cellulitis of extremity: lower extremity Laterality: left Qualified Code(s): L03.116 - Cellulitis of left lower limb Admit Date/Time: 05/11/25 16:28 Admit Provider: Shaan Evangelista
--- NOTE | 2025-05-11 14:42 | PC.WOUNDPHOT ---
Left Leg wound photos:
[2025-05-11 14:44] LABS: Add Manual Diff / Slide Review NO; Hematocrit 38.9 % (36-46); Hemoglobin 13.5 g/dL (12.0-16.0); Lymphocytes Absolute Auto 1900 /uL (1100-4500); Mean Corpuscular HGB Conc 34.8 % (30-36); Mean Corpuscular Hemoglobin 30.1 PG (26-34); Mean Corpuscular Volume 86.5 fL (80-100); Platelet Count 259 X10^3/uL (150-400)
[2025-05-11] MEDS: cefTRIAXone 2,000 MG in SODIUM CHLORIDE 0.9% 100 ML 200 MG IV (14:44)
[2025-05-11 14:47] LABS: Alanine Aminotransferase 48 IU/L (<35); Albumin 4.5 g/dL (3.5-5.0); Albumin Globulin Ratio 1.5 (1.0-2.8); Alkaline Phosphatase 119 U/L (38-126); Blood Urea Nitrogen 15 mg/dL (7-17); Calcium 9.4 mg/dL (8.4-10.2); Carbon Dioxide 24 mmol/L (22-32); Chloride 102 mmol/L (98-107); Estimated Glomerular Filt Rate 47 mL/min (>60); Globulin 3.1 g/dL (1.7-4.1); Glucose 108 mg/dL (70-99); HEMOLYSIS < 15 (0-50); Lactate (Lactic Acid) 1.1 mmol/L (0.7-2.1); Potassium 3.9 mmol/L (3.4-5.1); Sodium 139 mmol/L (137-145); Total Protein 7.6 g/dL (6.3-8.2)
[2025-05-11] MEDS: KETOROLAC 30 MG/ML VIAL 15 MG IV (15:21)
[2025-05-11] MEDS: OXYCODONE/ACETAMINOPHEN 5/325 TABLET 1 TAB PO (16:40)
--- NOTE | 2025-05-11 17:41 | PM.HP.1 ---
History of Present Illness History of Present Illness Date Patient Seen: 05/11/25 Time Patient Seen: 17:41 Chief complaint: Returning; Cellulitis L Leg, Worsening Pain PFSH Medical History Lumbar radiculopathy Hip pain Sleep apnea (~2009) Depression Anxiety Fractures (~2010) Chronic back pain (~2022) Dry eyes Tinnitus Recurrent sinusitis Glaucoma (~2019) Cataracts, bilateral History of urinary incontinence (~2021) GERD (gastroesophageal reflux disease) Colon polyps Retinal defect with detachment (~2019) Osteopenia Coronary artery calcification Hyperlipidemia Sarcoidosis (~2022) Closed fibular fracture Shoulder pain, right Surgical History Anesthesia History of eyelid surgery History of rhinoplasty History of ankle surgery History of surgery on wrist History of thumb surgery History of shoulder surgery History of sinus surgery History of appendectomy History of tonsillectomy Family History Father Congestive heart failure Mother Hypertension Hyperlipidemia Mental health problem Stroke Grandmother Breast cancer Social History household members: spouse Smoking Status: Never smoker Meds Home Medications and Allergies Home Medications ?Medication ?Instructions ?Recorded ?Confirmed ?Type amlodipine 5 mg tablet 5 mg PO DAILY 01/23/24 05/11/25 History losartan 50 mg tablet 50 mg PO DAILY 01/23/24 05/11/25 History omeprazole 20 mg capsule,delayed 20 mg PO DAILY 01/23/24 05/11/25 History release difluprednate 0.05 % eye drops 1 drp EYE-BOTH Q12H 04/20/24 05/11/25 History estradiol 10 mcg vaginal tablet 10 mcg vaginal 2XW 04/20/24 05/11/25 History hydroxyzine HCl 25 mg tablet 25 mg PO BID 04/20/24 05/11/25 History atorvastatin 10 mg tablet 10 mg PO DAILY 01/24/25 05/11/25 History icosapent ethyl 0.5 gram capsule 1 g PO BID 02/06/25 05/11/25 History methotrexate sodium 2.5 mg tablet 10 mg (4 x 2.5 mg) PO QWEEK #84 02/07/25 05/11/25 Rx tabs doxycycline hyclate 100 mg capsule 100 mg PO BID 1 week #14 caps 05/08/25 05/11/25 Rx ezetimibe 10 mg tablet (Zetia) 10 mg PO DAILY 05/11/25 05/11/25 History Allergies Allergy/AdvReac Type Severity Reaction Status Date / Time levofloxacin (From Levaquin) Allergy Severe swelling Verified 05/11/25 13:49 Penicillins Allergy Severe swelling Verified 05/11/25 13:49 Sulfa (Sulfonamide Allergy Intermediate swelling Verified 05/11/25 13:49 Antibiotics) of feet Review of Systems Review of Systems Narrative: All else reviewed and otherwise unremarkable except as noted in the history and physical. Exam Vital Signs (past 8 hours): - 05/11/25 13:49 05/11/25 14:36 05/11/25 14:38 Temperature 97.0 F L Pulse Rate 75 66 68 Respiratory Rate 18 Blood Pressure 119/59 L Pulse Oximetry 98 99 97 Oxygen Delivery Method Room Air Room Air 05/11/25 14:38 05/11/25 15:00 05/11/25 15:00 Temperature Pulse Rate 67 Respiratory Rate Blood Pressure 104/67 113/59 L Pulse Oximetry 94 Oxygen Delivery Method 05/11/25 15:30 05/11/25 15:30 05/11/25 16:00 Temperature Pulse Rate 66 65 Respiratory Rate Blood Pressure 120/60 Pulse Oximetry 96 96 Oxygen Delivery Method Room Air 05/11/25 16:00 05/11/25 16:30 05/11/25 16:30 Temperature Pulse Rate 68 Respiratory Rate Blood Pressure 124/61 125/61 Pulse Oximetry 96 Oxygen Delivery Method 05/11/25 17:00 05/11/25 17:00 Temperature Pulse Rate 69 Respiratory Rate 16 Blood Pressure 137/73 Pulse Oximetry 97 Oxygen Delivery Method Room Air Oxygen Delivery Method Room Air Narrative Exam Narrative: NAD, alert and oriented, fluent speech, calm. Normocephalic skull, EOMI, anicteric sclera, symmetric pupils. Oropharynx unremarkable, no droop. Neck supple, midline trachea, no adenopathy. Lungs clear, normal rate and effort. Heart regular, no murmur gallop or rub. Abdomen is soft, non distended and non tender. Extremities: Left leg is red and swollen [id number]. She does have a scarlet forearm type appearance of her rash. There was no focal swelling induration or boil. Skin is free of rash or lesions. Joints are not swollen or deformed. Judgment appears to be normal. Objective Imaging Venous US: Radiologist's impression: IMPRESSION: No findings of lower extremity deep venous thrombosis. Dictated by: Shamar Parikh M.D. on 05/08/2025 at 14:42 Labs 05/11/25 14:04 05/11/25 14:04 Labs: Laboratory Results - last 24 hr 05/11/25 14:04 WBC 10.4 RBC 4.50 Hgb 13.5 Hct 38.9 MCV 86.5 MCH 30.1 MCHC 34.8 RDW 14.4 Plt Count 259 Neut % (Auto) 69.8 Lymph % (Auto) 18.3 L [place] % (Auto) 9.2 Eos % (Auto) 2.3 Baso % (Auto) 0.4 Neut # (Auto) 7200 H Lymph # (Auto) 1900 [place] # (Auto) 1000 H Eos # (Auto) 200 Baso # (Auto) 0 ESR 45 H Sodium 139 Potassium 3.9 Chloride 102 Carbon Dioxide 24 BUN 15 Creatinine 1.25 H Estimated GFR 47 L BUN/Creatinine Ratio 12.0 Glucose 108 H Lactate 1.1 Calcium 9.4 Total Bilirubin 0.5 AST 40 H ALT 48 H Alkaline Phosphatase 119 Total Protein 7.6 Albumin 4.5 Globulin 3.1 Albumin/Globulin Ratio 1.5 Assessment & Plan Assessment & Plan narrative: 1. Left leg cellulitis, which is progressive despite antibiotics for 4 days. She has a history of immunosuppression secondary to methotrexate for sarcoidosis. Present on admission and active. 2. Sarcoidosis treated with methotrexate, present on admission and stable. Plan: -IV ceftriaxone 2 g IV Q 24 hours. -leg elevation. -MRSA screen. No history of MRSA. She was followed by [facility] rheumatology. She was a follow up appointment next week Tuesday for repeat CT scan and a walk test. She lives in [place] with her , he was proxy. Full resuscitation. Anticipate 2 midnights in the hospital, supports inpatient status. The patient has a significant limb infection and is on chronic immunosuppression increasing her risk of adverse outcomes of this infection. Time-Based Coding :: 35 min spent with patient and on the chart (including review of chart, obtaining history, exam, reviewing outside data, placing orders, documenting exam and treatment plan, and counseling patient) on 05/11. Quality MIPS - Admit I confirm the patient?s Advance Care Plan is present, Code status is documented, Surrogate decision maker is in patient?s record [If Yes, STOP here]: Yes MIPS - Meds 'Current medications' to include all prescriptions, [id number] products, herbals, cannabis/cannabidiol products, and vitamin/mineral/dietary (nutritional) supplements. I have utilized all available resources to obtain, update, or review the patient?s current medications. [If Yes, STOP here]: Yes
--- NOTE | 2025-05-11 19:02 | PC.NURSE ---
Pt arrived in wheelchair from ED at 1725. A&Ox4, VSS on RA. Rash to RLE outlined with pen: red, raised, swollen, c/o 3/10 burning and stinging pain which is tolerable at this time. Lungs CTA, bowel sounds present, CMS+. Pt oriented to room and call light. Bed in low position, call light within reach.
[2025-05-11] MEDS: HEPARIN 5,000 UNIT/ML VIAL 5000 UNIT SUBCUT (21:03)
[2025-05-11] MEDS: SENNOSIDES 8.6 MG TABLET 17.2 MG PO (21:03)
[2025-05-11] MEDS: AMLODIPINE 5 MG TABLET PO (21:29)
[2025-05-11] MEDS: LOSARTAN 50 MG TABLET PO (21:29)
[2025-05-11 21:36] LABS: MRSA (Nasal) PCR NOT DETECTED (Not Detect)
[2025-05-12 05:17] LABS: Add Manual Diff / Slide Review NO; Hematocrit 34.3 % (36-46); Hemoglobin 12.3 g/dL (12.0-16.0); Lymphocytes Absolute Auto 1300 /uL (1100-4500); Mean Corpuscular HGB Conc 35.8 % (30-36); Mean Corpuscular Hemoglobin 30.6 PG (26-34); Mean Corpuscular Volume 85.4 fL (80-100); Platelet Count 222 X10^3/uL (150-400)
[2025-05-12 05:31] LABS: Blood Urea Nitrogen 11 mg/dL (7-17); Calcium 8.6 mg/dL (8.4-10.2); Carbon Dioxide 26 mmol/L (22-32); Chloride 102 mmol/L (98-107); Estimated Glomerular Filt Rate > 60 mL/min (>60); Glucose 113 mg/dL (70-99); HEMOLYSIS < 15 (0-50); Potassium 4.1 mmol/L (3.4-5.1); Sodium 135 mmol/L (137-145)
[2025-05-12] MEDS: PANTOPRAZOLE DR 20 MG TABLET PO (06:38)
--- NOTE | 2025-05-12 07:42 | PM.PN.1 ---
Subjective Subjective Interval history: S: Her leg remains red and swollen, there was no discharge. The pain is somewhat better than yesterday. No fevers overnight. She was on chronic methotrexate for sarcoidosis. Exam Vital Signs (past 8 hours): Oxygen Delivery Method Room Air Oxygen Flow Rate 0 Narrative Exam Narrative: NAD, alert and oriented. Fluent speech. Lungs are clear, normal rate and effort. Heart is regular, no murmur gallop or rub. Abdomen is soft, non distended. Extremities: Left leg [id number] is red, less swollen and warm. It was a splotchy deep red rash that is consistent with strep. Objective Labs 05/12/25 04:47 05/12/25 04:47 Labs: Laboratory Results - last 24 hr 05/11/25 05/11/25 05/12/25 14:04 20:00 04:47 WBC 10.4 7.5 RBC 4.50 4.01 Hgb 13.5 12.3 Hct 38.9 34.3 L MCV 86.5 85.4 MCH 30.1 30.6 MCHC 34.8 35.8 RDW 14.4 14.5 Plt Count 259 222 Neut % (Auto) 69.8 70.8 Lymph % (Auto) 18.3 L 16.9 L [place] % (Auto) 9.2 9.3 Eos % (Auto) 2.3 2.5 Baso % (Auto) 0.4 0.5 Neut # (Auto) 7200 H 5300 Lymph # (Auto) 1900 1300 [place] # (Auto) 1000 H 700 Eos # (Auto) 200 200 Baso # (Auto) 0 0 ESR 45 H Sodium 139 135 L Potassium 3.9 4.1 Chloride 102 102 Carbon Dioxide 24 26 BUN 15 11 Creatinine 1.25 H 0.87 Estimated GFR 47 L > 60 BUN/Creatinine Ratio 12.0 12.6 Glucose 108 H 113 H Lactate 1.1 Calcium 9.4 8.6 Total Bilirubin 0.5 AST 40 H ALT 48 H Alkaline Phosphatase 119 Total Protein 7.6 Albumin 4.5 Globulin 3.1 Albumin/Globulin Ratio 1.5 Nasal Screen MRSA (PCR) Not detected [facility] Medical History Lumbar radiculopathy Hip pain Sleep apnea (~2009) Depression Anxiety Fractures (~2010) Chronic back pain (~2022) Dry eyes Tinnitus Recurrent sinusitis Glaucoma (~2019) Cataracts, bilateral History of urinary incontinence (~2021) GERD (gastroesophageal reflux disease) Colon polyps Retinal defect with detachment (~2019) Osteopenia Coronary artery calcification Hyperlipidemia Sarcoidosis (~2022) Closed fibular fracture Shoulder pain, right Surgical History Anesthesia History of eyelid surgery History of rhinoplasty History of ankle surgery History of surgery on wrist History of thumb surgery History of shoulder surgery History of sinus surgery History of appendectomy History of tonsillectomy Family History Father Congestive heart failure Mother Hypertension Hyperlipidemia Mental health problem Stroke Grandmother Breast cancer Social History household members: spouse Smoking Status: Never smoker Assessment & Plan Assessment & Plan narrative: 1. Left leg cellulitis, which is progressive despite antibiotics for 4 days. She has a history of immunosuppression secondary to methotrexate for sarcoidosis. Present on admission and active. 2. Sarcoidosis treated with methotrexate, present on admission and stable. Plan: -IV ceftriaxone 2 g IV Q 24 hours. -leg elevation. -MRSA screen negative. -her leg remains quite red and swollen, and with her immunosuppression she remains at high risk for adverse outcomes of infection. She requires at least another night of IV antibiotics and leg elevation. She is followed by [facility] rheumatology. She was a follow up appointment next week Tuesday for repeat CT scan and a walk test. She lives in [place] with her , he was proxy. Full resuscitation. Anticipate 2 midnights in the hospital, supports inpatient status. The patient has a significant limb infection and is on chronic immunosuppression increasing her risk of adverse outcomes of this infection. Time-Based Coding :: [TOTAL MINUTES] spent with patient and on the chart (including review of chart, obtaining history, exam, reviewing outside data, placing orders, documenting exam and treatment plan, and counseling patient) on [DATE]. Quality VTE Deep Vein Thrombosis/Pulmonary Embolism Present on Admission: No
[2025-05-12 08:00] VITALS: BP 144/70; PULSE 83; RESP 17; TEMP 36.7; O2SAT 96
[2025-05-12] MEDS: cefTRIAXone 2,000 MG in SODIUM CHLORIDE 0.9% 100 ML 200 MG IV (09:29)
[2025-05-12] MEDS: HEPARIN 5,000 UNIT/ML VIAL 5000 UNIT SUBCUT ×2 (09:36→20:41)
[2025-05-12] MEDS: ATORVASTATIN 20 MG TABLET 10 MG PO (09:37)
[2025-05-12] MEDS: EZETIMIBE 10 MG TABLET PO (09:37)
[2025-05-12] MEDS: OXYCODONE/ACETAMINOPHEN 5/325 TABLET 1 TAB PO ×2 (09:44→17:47)
[2025-05-12] MEDS: prednisoLONE OPHTH SUSP 1 DROPS EYE-BOTH ×2 (11:29→20:41)
--- NOTE | 2025-05-12 11:56 | PC.NURSE ---
Addendum entered by Irene Jaimes R.N. 05/12/25 18:36: Patient had a temperature of 100.7, tylenol given and patient temp down. She is resting comfortably, oxycodone also given and helpful for leg pain. Original Note: Patients left leg with redness from knee to ankle. Area's blotching and red, slightly weepy. She is up independently, give 1 percocet for discomfort as she states that her pain increases with ambulating. Patient is taking a nap now.
--- NOTE | 2025-05-12 15:10 | CM.DANOTE ---
Patient is a 69 yo female who was admitted INPT Status on 05/11/25 for L Leg Cellulitis. Patient has MCR and PRE DIM for insurance and her PCP is Dr. Susana Camacho. EMR was reviewed. Per MD, pt with hx of scarcoidosis which makes pt immunosuppressed and now with leg cellulitis which failed outpt abx and admitted for IV abx and treatment. MD anticipates another 1-2 days before discharge. Per RN, pt has been independent in room and no concerns noted. SW met briefly bedside with pt and explained role and she confirms she lives in [place] in [facility] with her spouse and she is active and independent at baseline. Pt does not use DME to ambulate and still drives and denies hx of HH or SNF. Pt's preference is to d/c home when stable and states her spouse can provide transport at d/c and pt does not anticipate any further needs at this time. SW to update TCM team at d/c as PCP is Dr. Camacho and follow for any further identified discharge planning needs. COLE Calderon Discharge Planning/Care Management CM Discharge Assessment Start: 05/11/25 17:04 Freq: Status: Active Protocol: Document 05/12/25 15:09 BF (Rec: 05/12/25 15:10 BF [id number]) Discharge Planning Assessment Assigned Discharge COLE [place] Building Maintenance Technician DPOA/Assigned spouse Diallo Designee Name Contact Information [phone] Advance Directives? No Advance Directives No on File History Provided By Patient,Medical Record Has Patient been No admitted in last 30 days? Prior Living House Arrangements Household Members spouse Type of Drives own vehicle transporation used prior to admit Independent with ADL Yes 's Is patient alert and Yes oriented? Caregiver for No Another Barriers to No Discharge Discharge Plan Home Referrals Initiated None needed Whiteboard Updated Yes in Patient Room with name and ext. # of Lead Programmer Review Status In Process Please Provide Date 05/12/25 Initial DC Assessment Was Performed Next Review Type Continued Stay Review
[2025-05-12 17:48] VITALS: TEMP 38.2
[2025-05-12] MEDS: ACETAMINOPHEN 325 MG TABLET 650 MG PO (17:48)
[2025-05-12 17:50] VITALS: BP 140/50; PULSE 90; RESP 16; TEMP 38.2; O2SAT 97
[2025-05-12 19:00] VITALS: BP 130/89; PULSE 80; RESP 18; TEMP 37.6; O2SAT 93
[2025-05-12] MEDS: SENNOSIDES 8.6 MG TABLET 17.2 MG PO (20:41)
[2025-05-12] MEDS: AMLODIPINE 5 MG TABLET PO (20:41)
[2025-05-12] MEDS: LOSARTAN 50 MG TABLET PO (20:41)
[2025-05-13 05:04] LABS: Add Manual Diff / Slide Review NO; Hematocrit 36.4 % (36-46); Hemoglobin 12.9 g/dL (12.0-16.0); Lymphocytes Absolute Auto 1500 /uL (1100-4500); Mean Corpuscular HGB Conc 35.4 % (30-36); Mean Corpuscular Hemoglobin 30.5 PG (26-34); Mean Corpuscular Volume 86.3 fL (80-100); Platelet Count 261 X10^3/uL (150-400)
[2025-05-13 05:12] LABS: Blood Urea Nitrogen 12 mg/dL (7-17); Calcium 8.8 mg/dL (8.4-10.2); Carbon Dioxide 28 mmol/L (22-32); Chloride 101 mmol/L (98-107); Estimated Glomerular Filt Rate > 60 mL/min (>60); Glucose 118 mg/dL (70-99); HEMOLYSIS < 15 (0-50); Potassium 4.0 mmol/L (3.4-5.1); Sodium 137 mmol/L (137-145)
[2025-05-13] MEDS: PANTOPRAZOLE DR 20 MG TABLET PO (05:48)
[2025-05-13 05:51] VITALS: TEMP 36.6
[2025-05-13 06:09] LABS: Procalcitonin 0.119 ng/mL (<0.5)
[2025-05-13 07:00] VITALS: BP 129/63; PULSE 68; RESP 14; TEMP 36.6; O2SAT 94
--- NOTE | 2025-05-13 07:51 | PM.PN.1 ---
Subjective Subjective Interval history: Summary: This is a pleasant 69-year-old female who is on chronic methotrexate for sarcoidosis, managed at [facility]. She was an appointment there Tuesday which she wants to make. She presented with a left lower extremity cellulitis, and this was progressive despite several days of oral antibiotics. She has been on IV antibiotics here with slow improvement. Her procalcitonin has improved dramatically. It was 0.636 on May 08 in his 0.119 today. Her WBC was 13.8 on 05/07 and a 7.4 today. She was had no fevers since the , when she had a temperature of 100.7?. She also had a temperature on 05/07 of 100.4. Nares MRSA is negative and she is being treated with ceftriaxone. S: Still red, although little bit better. Less swollen and painful. There is some blistering and oozing. She was doing a good job of keeping the leg elevated. Exam Vital Signs (past 8 hours): - 05/13/25 05:51 Temperature 97.9 F Oxygen Delivery Method Room Air Oxygen Flow Rate 0 Narrative Exam Narrative: NAD, alert and oriented. Fluent speech. Lungs are clear, normal rate and effort. Heart is regular, no murmur gallop or rub. Abdomen is soft, non distended. Extremities: Left leg is red and swollen [id number] to the ankle. There is somewhat blotchy in appearance, there is warmth, and some blistering. There was no induration or fluctuance. It appears to be somewhat improved and she was elevated at when I went in to see her. Objective Imaging Venous US: Radiologist's impression: No findings of lower extremity deep venous thrombosis. Labs 05/13/25 04:40 05/13/25 04:40 Labs: Laboratory Results - last 24 hr 05/13/25 04:40 WBC 7.4 RBC 4.22 Hgb 12.9 Hct 36.4 MCV 86.3 MCH 30.5 MCHC 35.4 RDW 14.6 Plt Count 261 Neut % (Auto) 63.9 Lymph % (Auto) 20.6 L [place] % (Auto) 11.4 Eos % (Auto) 3.5 Baso % (Auto) 0.6 Neut # (Auto) 4800 Lymph # (Auto) 1500 [place] # (Auto) 800 Eos # (Auto) 300 Baso # (Auto) 0 Sodium 137 Potassium 4.0 Chloride 101 Carbon Dioxide 28 BUN 12 Creatinine 0.90 Estimated GFR > 60 BUN/Creatinine Ratio 13.3 Glucose 118 H Calcium 8.8 Procalcitonin 0.119 PFSH Medical History Lumbar radiculopathy Hip pain Sleep apnea (~2009) Depression Anxiety Fractures (~2010) Chronic back pain (~2022) Dry eyes Tinnitus Recurrent sinusitis Glaucoma (~2019) Cataracts, bilateral History of urinary incontinence (~2021) GERD (gastroesophageal reflux disease) Colon polyps Retinal defect with detachment (~2019) Osteopenia Coronary artery calcification Hyperlipidemia Sarcoidosis (~2022) Closed fibular fracture Shoulder pain, right Surgical History Anesthesia History of eyelid surgery History of rhinoplasty History of ankle surgery History of surgery on wrist History of thumb surgery History of shoulder surgery History of sinus surgery History of appendectomy History of tonsillectomy Family History Father Congestive heart failure Mother Hypertension Hyperlipidemia Mental health problem Stroke Grandmother Breast cancer Social History household members: spouse Smoking Status: Never smoker Assessment & Plan Assessment & Plan narrative: 1. Left leg cellulitis, which is progressive despite antibiotics for 4 days. She has a history of immunosuppression secondary to methotrexate for sarcoidosis. Present on admission and improving. 2. Sarcoidosis treated with methotrexate, present on admission and stable. Plan: -IV ceftriaxone 2 g IV Q 24 hours. She was not stable enough to be discharged and we will continue IV antibiotics for another midnight. -leg elevation. -MRSA screen negative. -Her leg remains quite red and swollen, and with her immunosuppression she remains at high risk for adverse outcomes of infection. She requires at least another night of care. She is followed by [facility] Rheumatology. She was a follow up appointment on Tuesday for repeat CT scan and a walk test. She wants to discharge on Tuesday if able to make this appointment. She lives in [place] with her , he was proxy. Full resuscitation. Time-Based Coding :: [TOTAL MINUTES] spent with patient and on the chart (including review of chart, obtaining history, exam, reviewing outside data, placing orders, documenting exam and treatment plan, and counseling patient) on [DATE]. Quality VTE Deep Vein Thrombosis/Pulmonary Embolism Present on Admission: No
[2025-05-13] MEDS: cefTRIAXone 2,000 MG in SODIUM CHLORIDE 0.9% 100 ML 200 MG IV (09:51)
[2025-05-13] MEDS: prednisoLONE OPHTH SUSP 1 DROPS EYE-BOTH ×2 (09:52→21:07)
[2025-05-13] MEDS: ATORVASTATIN 20 MG TABLET 10 MG PO (09:52)
[2025-05-13] MEDS: EZETIMIBE 10 MG TABLET PO (09:52)
[2025-05-13] MEDS: HEPARIN 5,000 UNIT/ML VIAL 5000 UNIT SUBCUT ×2 (09:52→21:07)
--- NOTE | 2025-05-13 10:53 | CM.DPC ---
DCP COnt: Per MD and RN, pt remains on room air and pain seems controlled and to get another day of IV-Abx today with likely plan of discharge home tomorrow 05/14 if she remains stable. No needs anticipated. COLE Calderon
[2025-05-13] MEDS: VANCOMYCIN 1,000 MG in SODIUM CHLORIDE 0.9% 250 ML 250 MG IV (16:24)
[2025-05-13 21:00] VITALS: BP 138/59; PULSE 69; RESP 16; TEMP 36.1; O2SAT 94
[2025-05-13] MEDS: LOSARTAN 50 MG TABLET PO (21:07)
[2025-05-13] MEDS: AMLODIPINE 5 MG TABLET PO (21:08)
[2025-05-13] MEDS: SENNOSIDES 8.6 MG TABLET 17.2 MG PO (21:09)
[2025-05-14] MEDS: VANCOMYCIN 1,000 MG in SODIUM CHLORIDE 0.9% 250 ML 250 MG IV ×2 (04:51→15:04)
[2025-05-14 06:15] LABS: Procalcitonin 0.105 ng/mL (<0.5)
[2025-05-14] MEDS: ACETAMINOPHEN 325 MG TABLET 650 MG PO ×2 (06:20→15:04)
[2025-05-14] MEDS: PANTOPRAZOLE DR 20 MG TABLET PO (06:20)
[2025-05-14 07:00] VITALS: BP 124/58; PULSE 66; RESP 18; TEMP 35.9; O2SAT 94
--- NOTE | 2025-05-14 08:17 | PM.DS.1 ---
History of Present Illness History of Present Illness Date Patient Seen: 05/14/25 Chief complaint: Returning; Cellulitis L Leg, Worsening Pain Narrative: 69-year-old woman with a history of hyperlipidemia, hypertension, sarcoidosis on 10 mg of methotrexate weekly was seen on the and the and for lower extremity swelling redness and pain. DVT study on the was negative for any clot. On the white count was 13.8, on the that was down to 10.1. No anemia, chemistries are minimally changed, procalcitonin is slightly elevated. She has almost completed her doxycycline but symptoms continue to worsen, she is having increasing swelling to the point that she is almost developing bulla over the calf. On the there has been a small amount of erythema in the medial aspect of the upper thigh and that has completely resolved. She states that she generally does not feel well but does not feel acutely toxic either. She does not describe fevers, cough, nausea, abdominal pain, palpitation Discharge Providers Provider Date of admission: 05/11/25 16:28 Discharge Date: 05/14/25 Primary care physician: Susana Camacho MD Discharge provider: Kasey Toscano MD Summary Hospital Course Hospital Course: 1. Left leg cellulitis, which worsened despite Doxycycline outpatient for 4 days. She has a history of immunosuppression secondary to methotrexate for sarcoidosis. This has steadily improved, and she is now able to discharge home after 3 days of IV ceftriaxone and vancomycin. 2. Sarcoidosis treated with methotrexate, she will follow-up with her pattern marker at tomorrow, which is 1 of the reasons she is pressing to go home today, which is actually quite reasonable given the improvement. Plan: -IV ceftriaxone 2 g IV Q 24 hours. Vancomycin b.i.d. -Her leg is now less red and swollen, and with her immunosuppression she remains at high risk for adverse outcomes of infection. She requires additional oral antibiotics with completion of her doxycycline course and cephalexin for 10 more days (she is allergic to penicillin.) Left ankle continues with mild pink discoloration, wrinkled skin and serous yellowish fluid draining from the medial aspect of the ankle. A precautionary culture will be done before discharge. The procalcitonin has dropped from 0.119 down to 0.105 and she will be going home on Keflex, completing her previous doxycycline course also. I would have preferred to give her Augmentin but she is allergic to penicillin. Her pattern marker will be hopefully looking at the leg tomorrow and comparing it to a picture the patient took today and she will follow up with her PCP next week. Full resuscitation. Followup in 2 weeks with Susana Camacho MD (PCP) Status at Discharge Cognitive/behavioral status at discharge: at baseline, oriented Functional status at discharge: independent ambulation Overall status at discharge: patient is progressing back to baseline Exam Vital Signs (past 8 hours): - 05/14/25 07:00 Temperature 96.7 F L Pulse Rate 66 Respiratory Rate 18 Blood Pressure 124/58 L Pulse Oximetry 94 Oxygen Delivery Method Room Air Oxygen Flow Rate 0 Narrative Exam Narrative: Alert and oriented x3. No apparent distress. Heart is regular rate and rhythm without murmur Lungs are clear to auscultation bilaterally Right leg and ankle is normal Left ankle continues with mild pink discoloration, wrinkled skin and serous yellowish fluid draining from the medial aspect of the ankle. A precautionary culture will be done before discharge. The procalcitonin has dropped from 0.119 down to 0.105 and she will be going home on Keflex, completing her previous doxycycline course also. I would have preferred to give her Augmentin but she is allergic to penicillin. Her pattern marker will be hopefully looking at the leg tomorrow and comparing it to a picture the patient took today and she will follow up with her PCP next week. Objective Labs 05/13/25 04:40 05/13/25 04:40 Labs: Laboratory Results - last 24 hr 05/14/25 04:54 Procalcitonin 0.105 [facility] Medical History Lumbar radiculopathy Hip pain Sleep apnea (~2009) Depression Anxiety Fractures (~2010) Chronic back pain (~2022) Dry eyes Tinnitus Recurrent sinusitis Glaucoma (~2019) Cataracts, bilateral History of urinary incontinence (~2021) GERD (gastroesophageal reflux disease) Colon polyps Retinal defect with detachment (~2019) Osteopenia Coronary artery calcification Hyperlipidemia Sarcoidosis (~2022) Closed fibular fracture Shoulder pain, right Surgical History Anesthesia History of eyelid surgery History of rhinoplasty History of ankle surgery History of surgery on wrist History of thumb surgery History of shoulder surgery History of sinus surgery History of appendectomy History of tonsillectomy Family History Father Congestive heart failure Mother Hypertension Hyperlipidemia Mental health problem Stroke Grandmother Breast cancer Social History household members: spouse Smoking Status: Never smoker Discharge Plan Discharge Plan Patient Disposition: Home Provider Discharge Comment: Followup in 1 week with Susana Camacho MD (PCP) Discharge orders & Medications Prescriptions: New cephalexin 500 mg capsule 500 mg PO Q8H Qty: 30 0RF Continued omeprazole 20 mg capsule,delayed release(DR/EC) 20 mg PO DAILY amlodipine 5 mg tablet 5 mg PO DAILY losartan 50 mg tablet 50 mg PO DAILY estradiol 10 mcg tablet 10 mcg vaginal 2XW difluprednate 0.05 % drops 1 drp EYE-BOTH Q12H hydroxyzine HCl 25 mg tablet 25 mg PO BID methotrexate sodium 2.5 mg tablet 10 mg PO QWEEK Qty: 84 3RF Rx Instructions: dose change. ezetimibe [Zetia] 10 mg tablet 10 mg PO DAILY doxycycline hyclate 100 mg capsule 100 mg PO BID 7 Days Qty: 14 0RF icosapent ethyl 0.5 gram capsule 1 g PO BID atorvastatin 10 mg tablet 10 mg PO DAILY Follow up/Referrals: Susana Camacho MD [Primary Care Provider, Family Practice] Diet/Activity/Treatments Diet: Diet as Tolerated and Regular Visit Report/Discharge Packet Stand Alone Forms: Patient Portal/API, Stroke Signs & Symptoms Discharge Data Primary Care Provider: Susana Camacho Quality VTE Deep Vein Thrombosis/Pulmonary Embolism Present on Admission: No
[2025-05-14] MEDS: prednisoLONE OPHTH SUSP 1 DROPS EYE-BOTH (09:12)
[2025-05-14] MEDS: cefTRIAXone 2,000 MG in SODIUM CHLORIDE 0.9% 100 ML 200 MG IV (09:13)
[2025-05-14] MEDS: ATORVASTATIN 20 MG TABLET 10 MG PO (09:13)
[2025-05-14] MEDS: HEPARIN 5,000 UNIT/ML VIAL 5000 UNIT SUBCUT (09:13)
[2025-05-14] MEDS: EZETIMIBE 10 MG TABLET PO (09:13)
[2025-05-14 09:32] VITALS: O2SAT 98
[2025-05-14] MEDS: OXYCODONE/ACETAMINOPHEN 5/325 TABLET 1 TAB PO (10:27)
--- NOTE | 2025-05-14 11:38 | CM.DPC ---
DCP Cont. Reviewed EMR and team rounds for pt's status updates. Pt has been medically cleared for home d/c today. Family will transport. Notified TCM group of d/c, no further CM needs indicated at this time.
== END 2025-05-14 16:45 | disposition home or self-care (01) | DRG 603 ==
LOC: ED 13:54 → AC 16:28
PROVIDERS: Admitting Provider Hospitalist; Emergency Provider Emergency Medicine; PCP Family Medicine; Referring Provider Emergency Medicine; Visit Provider Hospitalist
DX: L03.116 Cellulitis of left lower limb (principal); D84.821 Immunodeficiency due to drugs; D86.9 Sarcoidosis, unspecified; K21.9 Gastro-esophageal reflux disease without esophagitis; E78.5 Hyperlipidemia, unspecified; Z79.631 Long term (current) use of antimetabolite agent; Z88.0 Allergy status to penicillin
CPT/HCPCS: 36415; 80048; 80053; 83605; 83690; 84145; 85025; 85610; 85651; 85730; 86060; 87040; 87070; 87205; 87797; 93971; 96365; 96375; 99284; A9270; J0696; J1644; J1885; J8610

== ENCOUNTER → 2025-09-26 14:47 | Outpatient (CLI) | payer MEDICARE, OTHER, SELFPAY ==
[2025-06-07 14:05] VITALS: BMI 25.7
--- NOTE | 2025-09-26 14:49 | DI.MG.S_ITS ---
MM screening mammo BI: 09/26/2025. BI-RADS: 1 CLINICAL: 69-year old female for bilateral screening mammogram. Tyrer-Cuzick lifetime risk of 13.3%. No personal or first-degree family history of breast cancer. Current reported family history of breast cancer: paternal grandmother. PRIOR EXAMS 08/31/2024, 08/22/2023, 08/12/2022. MAMMOGRAPHY TECHNIQUE: 2D and 3D (tomosynthesis) digital mammographic views obtained, with additional images as needed for full coverage. Current study was also evaluated with a Computer Aided Detection (CAD) system. DENSITY C. The breasts are heterogeneously dense, which may obscure small masses. MAMMOGRAPHY FINDINGS Bilateral: No suspicious mass, asymmetry, microcalcification, or other abnormality seen. IMPRESSION: * No evidence of malignancy. RECOMMENDATIONS Bilateral * Annual screening mammography. OVERALL ASSESSMENT CATEGORY BI-RADS-1: Negative. The [employer] recommends annual screening mammography beginning at age 40 for women with average risk of breast cancer. ELECTRONICALLY SIGNED: Lorena Mendoza M.D. on 09/29/2025 at 04:44:45 PM PT Interpreting Station ID: [id number]
== END ==
LOC: MAMMO 14:48
PROVIDERS: PCP Family Medicine; Referring Provider Family Medicine; Visit Provider Family Medicine
DX: Z12.31 Encounter for screening mammogram for malignant neoplasm of breast (principal); R92.333 Mammographic heterogeneous density, bilateral breasts; Z80.3 Family history of malignant neoplasm of breast
CPT/HCPCS: 77063; 77067

== ENCOUNTER → 2025-11-05 08:12 | Outpatient (CLI) | payer MEDICARE, OTHER, SELFPAY ==
[2025-11-04 16:27] VITALS: BMI 25.7
[2025-11-05 08:50] LABS: Add Manual Diff / Slide Review NO; Hematocrit 39.8 % (36-46); Hemoglobin 13.7 g/dL (12.0-16.0); Lymphocytes Absolute Auto 1600 /uL (1100-4500); Mean Corpuscular HGB Conc 34.6 % (30-36); Mean Corpuscular Hemoglobin 28.9 PG (26-34); Mean Corpuscular Volume 83.7 fL (80-100); Platelet Count 247 X10^3/uL (150-400)
[2025-11-05 09:04] LABS: HEMOLYSIS < 15 (0-50); Iron 90 ug/dL (37-170)
[2025-11-05 09:11] LABS: Alanine Aminotransferase 29 IU/L (<35); Albumin 4.6 g/dL (3.5-5.0); Albumin Globulin Ratio 2.0 (1.0-2.8); Alkaline Phosphatase 88 U/L (38-126); Blood Urea Nitrogen 20 mg/dL (7-17); Calcium 9.2 mg/dL (8.4-10.2); Carbon Dioxide 27 mmol/L (22-32); Chloride 103 mmol/L (98-107); Estimated Glomerular Filt Rate 54 mL/min (>60); Globulin 2.3 g/dL (1.7-4.1); Glucose 76 mg/dL (70-99); HEMOLYSIS < 15 (0-50); Potassium 4.7 mmol/L (3.4-5.1); Sodium 139 mmol/L (137-145); Total Protein 6.9 g/dL (6.3-8.2)
[2025-11-05 09:16] LABS: Percent Iron Saturation 27 % (15-50); Total Iron Binding Capacity 332 ug/dL (265-497); Transferrin 294 mg/dL (206-381)
[2025-11-05 09:37] LABS: TSH w/ Reflex to FT4 1.89 uIU/mL (0.47-4.68)
[2025-11-05 09:42] LABS: Cortisol AM (Before 10AM) 11.2 ug/dL (4.46-22.7)
[2025-11-05 09:46] LABS: Ferritin 41 ng/mL (11-264)
== END ==
PROVIDERS: PCP Family Medicine; Referring Provider Family Medicine; Visit Provider Family Medicine
DX: R63.5 Abnormal weight gain (principal); R68.82 Decreased libido; G47.00 Insomnia, unspecified; R53.83 Other fatigue
CPT/HCPCS: 36415; 80053; 82533; 82728; 83540; 83550; 84443; 85025